=== PATIENT | female | born 1985 | race Caucasian/White ===

== ENCOUNTER 2016-07-16 21:52 | Emergency (ER) | payer OTHER ==
[~2016-07-16] VITALS: Ht 152.4 cm; Wt 75.4 kg
[~2016-07-16 21:52] MED LIST: ALBUAER2 INH; ONDA4TAB10 SL; PRENTAB26 PO; ZNT/150 PO
[2016-07-16 22:03] VITALS: TEMP 37.1; Ht 152.4 cm; Wt 75.4 kg
[2016-07-16] MEDS ORDERED: CLINDAMYCIN 150MG HOME PACK PO ONE (23:15)
[2016-07-16] MEDS ORDERED: CLC/300 PO (23:21)
--- NOTE | 2016-07-16 23:22 | EMERGENCY ROOM VISIT NOTE ---
History First contact with patient: 22:10 Chief Complaint: OTHER COMPLAINT Stated Complaint: A BUMP ON STOMACH History of Present Illness The patient is a 30 year old female who presents to the Emergency Room via private vehicle with complaints of "a bump on stomach". The patient states that she is 6 months , . She does have a history of MRSA in 2013, and his had different "break outs"of MRSA infections throughout her . These began as a painful rash on the right inner thigh and was cultured by her BASE BRANDER and found to be MRSA. This has subsided after taking antibiotic prescribed by her BASE BRANDER however she has now developed a small punctate erythematous region senior living between the mons pubis and umbilicus that is about the size of a nickel. She states this is been here for about 3 weeks and it has grown in size but has been relatively a consistent size. She states this region did feel hot, and it hurts to squeeze it but nothing has been expressed. She has tried cold compresses which relieved the pain. She denies any fevers or chills. She denies any bleeding or spotting, fevers, chills and she states the baby is active. Review of Systems A complete 6-point Review of Systems was discussed with the patient, with pertinent positives and negatives listed in the History of Present Illness. All remaining Review of Systems questions can be considered negative unless otherwise specified. Past Medical/Surgical History Medical Problems: (1) Arrest of dilitation (2) section (3) History of MRSA infection (4) Migraine Family History FHx: heart disease Hypertension Social History Smoking Status: Former Smoker Drug Use: none Marital Status: in relationship Housing Status: lives with family Occupation Status: employed Current/Historical Medications Scheduled Clindamycin HCl (Clindamycin HCl), 1 CAP PO BID Multivit/Min/Iron/Fol Ac/Pren ( Vitamin), 1 TAB PO DAILY Ranitidine Hcl (Zantac), 150 MG PO DAILY Scheduled PRN Albuterol (Ventolin), 2 PUFFS INH QID PRN for SOB/Wheezing Allergies Coded Allergies: Latex (Verified Allergy, Intermediate, HIVES, 04/30/16) Penicillins (Verified Allergy, Intermediate, HIVES, 04/30/16) Physical Exam Vital Signs Date Time Temp Pulse Resp B/P Pulse Ox O2 Delivery O2 Flow Rate FiO2 07/16/16 23:44 79 18 109/68 99 07/16/16 22:03 37.1 82 18 122/69 98 Room Air Physical Exam VITAL SIGNS - Vital signs and nursing notes were reviewed. Patient is afebrile , she is normotensive, she is not tachycardic and is saturating well on room air 98%. GENERAL -30-year-old female appearing her stated age who is in no acute distress. Communicates well with provider and answers questions appropriately. SKIN - there is a small punctate erythematous region that is circular in nature measuring 1.5 cm that is senior living between the umbilicus and wants pubis region. This appears to be in the waistline region and is constantly irritated by her pants. The region is indurated and is slightly hardened to touch but no fluctuant masses appreciated. Exam is consistent with that of cellulitis. HEAD - NC/AT. CARDIAC - RRR with S1/S2. No murmur, rubs, or gallops appreciated. Medical Decision & Procedures Medications Administered Medications (Trade) Dose Ordered Sig/Miguel Angel Route Start Time Stop Time Status Last Admin Dose Admin Clindamycin HCl (Cleocin 150MG Home Pack) 1 homepack UD ONCE PO 07/16/16 23:15 07/16/16 23:16 DC 07/16/16 23:27 1 HOMEPACK Medical Decision Patient was seen and evaluated as above. After obtaining a thorough history and physical examination, the exam was consistent with that of a cellulitis however I was concerned because she was and wanted to choose a safe antibiotic. I did discuss the case with my attending and then the pharmacist from the hospital pharmacy regarding an appropriate antibiotic for cellulitis in a female who has a history of MRSA. It was decided to give her penicillin allergy to clindamycin, being category B would be a good antibiotic with the benefits outweighed the risks. It was decided to place her on 300 mg twice daily for 5 days. She was given a home pack here with the remaining 4 days sent to her pharmacy. I do not appreciate any fluctuant or abscess-like region. She is afebrile therefore believe that sepsis is unlikely. She was instructed to return in the next 2-3 days for recheck of the wound or with her family doctor or BASE BRANDER. She was educated upon worrisome symptoms in which to return. She had questions answered prior to discharge and was discharged home in good condition. The home pack given to the patient was 150 mg tablets and she was instructed that she would need to take 2 of these to equal 300 mg. This was to be reinforced by the nurse as well. Patient seemed to understand. In evaluation treatment this patient the following differential diagnoses were entertained: Cellulitis, abscess, phlegmon, among others. Impression Primary Impression: Cellulitis Departure Information Dispostion Home / Self-Care Condition GOOD Prescriptions Clindamycin HCl (Clindamycin HCl) 300 Mg Cap 1 CAP PO BID for 4 Days, #8 CAP Prov: Lonnie Arroyo PA-C 07/16/16 Referrals Franklin Bowers D.O.Int.Med. (PCP) Patient Instructions My [facility] Additional Instructions You were seen in the emergency department for cellulitis of your abdomen. I spoke with the pharmacist and the decision was made to place her on clindamycin. This is one tablet (300mg) every 12 hours which is twice daily for a total of 5 days. You were given the first 24 hour supply here in 150mg tablets. The other 4 days was sent to your pharmacy as 300 mg tablets. Please have this wound rechecked in the next 2-3 days either by returning here or with your family doctor. Please return with any fevers, chills or any new/concerning symptoms. Problem Qualifiers Primary Impression: Cellulitis Site of cellulitis: trunk Site of cellulitis of trunk: abdominal wall Qualified Codes: L03.311 - Cellulitis of abdominal wall
[2016-07-16 23:44] VITALS: BP 109/68; PULSE 79; O2SAT 99
== END 2016-07-16 23:44 | disposition home or self-care (01) ==
LOC: C.EDB 21:54 → EEVIPCON 21:54 → C.EDD 23:44
DX: O26.92 Pregnancy related conditions, unspecified, second trimester (principal); L03.311 Cellulitis of abdominal wall; Z86.14 Personal history of Methicillin resistant Staphylococcus aureus infection; Z87.891 Personal history of nicotine dependence; Z88.0 Allergy status to penicillin; Z91.040 Latex allergy status; Z82.49 Family history of ischemic heart disease and other diseases of the circulatory system

== ENCOUNTER 2016-07-25 11:50 | Emergency (ER) | payer OTHER ==
[~2016-07-25] VITALS: Ht 152.4 cm; Wt 73.0 kg
[~2016-07-25 11:50] MED LIST changes: -ONDA4TAB10 SL
[2016-07-25 11:51] VITALS: TEMP 37.3; Ht 152.4 cm; Wt 73.0 kg
[2016-07-25 12:21] LABS: BASO % 0.5 %; BASO ABS # 0.04 K/uL (0-0.2); COMPLETE YES; HEMATOCRIT 38.5 % (37-47); IG% 0.8 %; LYMPH % 12.3 %; LYMPH ABS # 0.96 K/uL (1.2-3.4); MEAN CELL VOLUME 84.2 fL (80-100); MEAN CORPUSCULAR HEMOGLOBIN 29.3 pg (25-34); MEAN CORPUSCULAR HGB CONC 34.8 g/dl (32-36); MONO % 10.3 %; NEUT % 76.1 %; PLATELET COUNT 289 K/uL (130-400); RED BLOOD COUNT 4.57 M/uL (4.2-5.4); WHITE BLOOD COUNT 7.83 K/uL (4.8-10.8)
[2016-07-25 12:28] LABS: ALT/SGPT 17 U/L (12-78); BLOOD UREA NITROGEN 3 mg/dl (7-18); BUN/CREATININE RATIO 3.8 (10-20); CALCIUM 9.1 mg/dl (8.5-10.1); CARBON DIOXIDE 23 mmol/L (21-32); CHLORIDE 99 mmol/L (98-107); CREATININE 0.68 mg/dl (0.60-1.20); GLUCOSE 85 mg/dl (70-99); POTASSIUM 3.2 mmol/L (3.5-5.1); SODIUM 134 mmol/L (136-145)
[2016-07-25 12:31] LABS: ALKALINE PHOSPHATASE 107 U/L (45-117); AST/SGOT 16 U/L (15-37)
[2016-07-25] MEDS ORDERED: DiphenhydrAMINE HCL 50 MG/ML VIAL IV STA (12:31)
[2016-07-25] MEDS ORDERED: SODIUM CHLORIDE 0.9% 1000ML 1,000 ML IV STA ×2 (12:31→14:19)
--- NOTE | 2016-07-25 12:41 | EMERGENCY ROOM VISIT NOTE ---
History Report prepared by Tonio: Soila Soni Under the Supervision of: Dr. Ilir Sofia M.D. First contact with patient: 12:01 Chief Complaint: VOMITING Stated Complaint: V, WEAKNESS - 7 MTHS History of Present Illness The patient is a 30 year old female who presents to the Emergency Room with complaints of persistent nausea and vomiting that began yesterday. She currently rates her discomfort as a 7.5/10 in severity. The patient notes that she is currently seven months . She additionally notes weakness and a fever since yesterday. The patient notes that she has had a decrease in urination, noting that her last urination was yesterday morning. She states that she has had some upper respiratory symptoms recently, and states that her daughter was diagnosed with Croup. The patient notes she was recently diagnosed with MRSA, and states that her symptoms have improved, but the area is still there. Per nursing staff, the patient has had problems with urinary retention and incontinence since her first . The patient states that she has taken Zofran without relief. She additionally notes left ear pain. Source of History: patient Onset: yesterday Position: other (globla) Symptom Intensity: 7.5/10 Quality: other (nausea and vomiting) Timing: other (persistent) Associated Symptoms: + fevers, + urinary symptoms (decreased urination), + weakness Note: Associated Symptoms: left ear pain. Review of Systems See HPI for pertinent positives & negatives. A total of 10 systems reviewed and were otherwise negative. Past Medical & Surgical Medical Problems: (1) Arrest of dilitation (2) section (3) History of MRSA infection (4) Migraine Family History FHx: heart disease Hypertension Social History Smoking Status: Former Smoker Drug Use: none Marital Status: in relationship Housing Status: lives with family Occupation Status: employed Current/Historical Medications Scheduled Albuterol Hfa (Ventolin Hfa), 2-4 PUFFS INH Q6H Cephalexin Monohydrate (Keflex), 1 CAP PO QID Multivit/Min/Iron/Fol Ac/Pren ( Vitamin), 1 TAB PO DAILY Ranitidine Hcl (Zantac), 150 MG PO DAILY Scheduled PRN Metoclopramide (Reglan), 10 MG PO Q6H PRN for Nausea Allergies Coded Allergies: Latex (Verified Allergy, Intermediate, HIVES, 04/30/16) Penicillins (Verified Allergy, Intermediate, HIVES, 04/30/16) Physical Exam Vital Signs Date Time Temp Pulse Resp B/P Pulse Ox O2 Delivery O2 Flow Rate FiO2 07/25/16 15:46 105 18 94/63 97 Room Air 07/25/16 14:36 100 18 106/83 100 Room Air 07/25/16 13:44 103 18 120/75 98 Room Air 07/25/16 11:51 37.3 105 20 103/79 96 Room Air Physical Exam GENERAL: Patient is a healthy-appearing well-nourished HEAD: Normocephalic atraumatic EYES: Ocular movements intact pupils equal and react to light OROPHARYNX mucous membranes are moist no exudates present no erythema or edema present NECK: Supple no nuchal rigidity CHEST: Good equal expansion LUNGS: Clear and equal to auscultation CARDIAC: Normal S1 and S2 ABDOMEN: MRSA spot is well healing. Gravid abdomen, Soft nontender no guarding BACK: No CVA tenderness EXTREMITIES: No pain upon palpation normal muscle strength in all groups no clubbing cyanosis or edema NEURO: Patient is following commands is answering questions appropriately. Alert and oriented x3 Cranial Nerves 2-12 grossly intact Medical Decision & Procedures ER Provider Diagnostic Interpretation: US results as stated below per my review and radiologist interpretation: BLADDER ULTRASOUND CLINICAL HISTORY: Urinary difficulties. Evaluate for bladder prolapse. COMPARISON STUDY: Normal renal ultrasound January 15, 2012. FINDINGS: Both ureteral jets were identified. The bladder is suboptimally assessed on this exam due to underdistention. Bladder prolapse is difficult to assess for by sonography. IMPRESSION: 1. No significant abnormality of the bladder by sonography. 2. Bladder prolapse is difficult to assess for by sonography. Electronically signed by: Salazar Clark M.D. 07/25/2016 1:51 PM Dictated Date/Time: 07/25/2016 1:46 PM Laboratory Results 07/25/16 12:00 Red Blood Count 4.57, Mean Corpuscular Volume 84.2, Mean Corpuscular Hemoglobin 29.3, Mean Corpuscular Hemoglobin Concent 34.8, Mean Platelet Volume 10.0, Neutrophils (%) (Auto) 76.1, Lymphocytes (%) (Auto) 12.3, Monocytes (%) (Auto) 10.3, Eosinophils (%) (Auto) 0.0, Basophils (%) (Auto) 0.5, Neutrophils # (Auto ) 5.96, Lymphocytes # (Auto) 0.96, Monocytes # (Auto) 0.81, Eosinophils # (Auto ) 0.00, Basophils # (Auto) 0.04 07/25/16 12:00 Test 07/25/16 12:00 07/25/16 14:37 White Blood Count 7.83 K/uL (4.8-10.8) Red Blood Count 4.57 M/uL (4.2-5.4) Hemoglobin 13.4 g/dL (12.0-16.0) Hematocrit 38.5 % (37-47) Mean Corpuscular Volume 84.2 fL (80-100) Mean Corpuscular Hemoglobin 29.3 pg (25-34) Mean Corpuscular Hemoglobin Concent 34.8 g/dl (32-36) Platelet Count 289 K/uL (130-400) Mean Platelet Volume 10.0 fL (7.4-10.4) Neutrophils (%) (Auto) 76.1 % Lymphocytes (%) (Auto) 12.3 % Monocytes (%) (Auto) 10.3 % Eosinophils (%) (Auto) 0.0 % Basophils (%) (Auto) 0.5 % Neutrophils # (Auto) 5.96 K/uL (1.4-6.5) Lymphocytes # (Auto) 0.96 K/uL (1.2-3.4) Monocytes # (Auto) 0.81 K/uL (0.11-0.59) Eosinophils # (Auto) 0.00 K/uL (0-0.5) Basophils # (Auto) 0.04 K/uL (0-0.2) RDW Standard Deviation 40.9 fL (36.4-46.3) RDW Coefficient of Variation 13.4 % (11.5-14.5) Immature Granulocyte % (Auto) 0.8 % Immature Granulocyte # (Auto) 0.06 K/uL (0.00-0.02) Anion Gap 12.0 mmol/L (3-11) Est Creatinine Clear Calc Drug Dose 108.9 ml/min Estimated GFR () 137.0 Estimated GFR (Non- 118.2 BUN/Creatinine Ratio 3.8 (10-20) Calcium Level 9.1 mg/dl (8.5-10.1) Total Bilirubin 0.4 mg/dl (0.2-1) Direct Bilirubin < 0.1 mg/dl (0-0.2) Aspartate Amino Transf (AST/SGOT) 16 U/L (15-37) Alanine Aminotransferase (ALT/SGPT) 17 U/L (12-78) Alkaline Phosphatase 107 U/L (45-117) Total Protein 8.3 gm/dl (6.4-8.2) Albumin 3.6 gm/dl (3.4-5.0) Lipase 171 U/L (73-393) Human Chorionic Gonadotropin, Quant 04577 mIU/mL Urine Color YELLOW Urine Appearance CLEAR (CLEAR) Urine pH 6.0 (4.5-7.5) Urine Specific [place] 1.001 (1.000-1.030) Urine Protein NEG (NEG) Urine Glucose (UA) NEG (NEG) Urine Ketones 2+ (NEG) Urine Occult Blood NEG (NEG) Urine Nitrite NEG (NEG) Urine Bilirubin NEG (NEG) Urine Urobilinogen NEG (NEG) Urine Leukocyte Esterase NEG (NEG) Labs reviewed by ED physician. Medications Administered Medications (Trade) Dose Ordered Sig/Miguel Angel Route Start Time Stop Time Status Last Admin Dose Admin Sodium Chloride (Nss 1000ml) 1,000 ml @ 999 mls/hr Q1H1M STAT IV 07/25/16 12:31 07/25/16 13:31 DC 07/25/16 12:59 999 MLS/HR Diphenhydramine HCl (Benadryl Inj) 50 mg NOW STAT IV 07/25/16 12:31 07/25/16 12:33 DC 07/25/16 12:57 50 MG Ceftriaxone Sodium (Rocephin Inj) 1 gm NOW STAT IV 07/25/16 12:44 07/25/16 12:45 DC 07/25/16 12:57 1 GM Potassium Chloride (Manuela Ciel Elix) 40 meq NOW STAT PO 07/25/16 13:04 07/25/16 13:05 DC 07/25/16 13:09 40 MEQ Albuterol Sulfate (Ventolin 0.5% 2.5MG/0.5ML Neb) 2.5 mg NOW STAT INH 07/25/16 13:36 07/25/16 13:37 DC 07/25/16 13:43 2.5 MG Albuterol (Ventolin Hfa Inhaler) 2 puffs NOW ONCE INH 07/25/16 13:45 07/25/16 13:46 DC 07/25/16 13:43 2 PUFFS Potassium Chloride (Manuela Ciel Elix) 40 meq NOW STAT PO 07/25/16 14:01 07/25/16 14:02 DC 07/25/16 14:27 40 MEQ Metoclopramide HCl 10 mg 10 mg NOW STAT IV 07/25/16 14:03 07/25/16 14:04 DC 07/25/16 14:26 10 MG Sodium Chloride (Nss 1000ml) 1,000 ml @ 999 mls/hr Q1H1M STAT IV 07/25/16 14:19 07/25/16 15:19 DC 07/25/16 14:35 999 MLS/HR ED Course 1202: Past medical records reviewed. The patient was evaluated in room B11B. A complete history and physical examination was performed by the medical student. 1231: Ordered Benadryl Inj 50 mg IV, Sodium Chloride 1000 ml @ 999 mls/hr IV. 1236: Past medical records reviewed. The patient was evaluated in room B11B. A complete history and physical examination was performed. 1244: Ordered Rocephin Inj 1 gm IV. 1304: Ordered Potassium Chloride 40 meq PO. 1336: Ordered Albuterol Sulfate 2.5 mg INH. 1345: Ordered Albuterol 2 puffs INH. 1401: Ordered Potassium Chloride 40 meq PO. 1403: Ordered Reglan Inj 10 mg IV. 1419: Ordered Sodium Chloride 1000 ml @ 999 mls/hr IV. 1518: I reevaluated the patient and she is resting comfortably. I discussed the exam findings with her and I discussed the treatment plan. She verbalized complete understanding and agreement. She is ready to go home. Medical Decision Differential diagnosis: Etiologies such as appendicitis, diverticulitis, PUD, biliary pathology, UTI, pancreatitis, obstruction, mesenteric ischemia, aortic pathology, infections, inflammatory bowel disease, renal colic, as well as others were entertained. This is a 30-year-old female who presents emergency department complaining of vomiting. The patient has had similar issues previously and she was . She denies any pelvic pain or vaginal bleeding. She has a soft and benign abdominal examination. Serial abdominal examinations were performed of the patient's emergency department and at no tender the patient exhibited abdominal tenderness. The patient was sent for a scan of her bladder as it was thought that the patient may have a prolapsed bladder due to urinary retention however the there is no evidence of this on ultrasound and in addition the patient was able to urinate. She has no tract infection however she is complaining of what appears to be an ear infection. For this reason the patient was given Rocephin in the emergency department and will be placed on Keflex. Repeat examination revealed improvement patient's symptoms. The patient was able to tolerate by mouth potassium after receiving Reglan. I'll continue Reglan as an outpatient. Patient was in agreement with the treatment plan. Impression Primary Impression: Vomiting Additional Impression: Otitis media Scribe Attestation The scribe's documentation has been prepared under my direction and personally reviewed by me in its entirety. I confirm that the note above accurately reflects all work, treatment, procedures, and medical decision making performed by me. Departure Information Dispostion Home / Self-Care Prescriptions Cephalexin Monohydrate (Keflex) 500 Mg Cap 1 CAP PO QID for 10 Days, #40 CAP Prov: Ilir Sofia MD 07/25/16 Metoclopramide (Reglan) 10 Mg Tab 10 MG PO Q6H Y for Nausea, #10 TAB Prov: lIir Sofia MD 07/25/16 Referrals Ed Black M.D. (PCP) Forms HOME CARE DOCUMENTATION FORM, IMPORTANT VISIT INFORMATION, School Instructions, Work Instructions Patient Instructions My [facility], Nausea Vomit Control Additional Instructions Follow up with DR Black's office You have been examined and treated today on an emergency basis only. This is not a substitute for, or an effort to provide, complete comprehensive medical care. It is impossible to recognize and treat all injuries or illnesses in a single emergency department visit. It is therefore important that you follow up closely with your PCP. Call as soon as possible for an appointment. Thank you for your time and consideration. I look forward to speaking with you again soon. Please don't hesitate to call us if you have any questions. Problem Qualifiers Primary Impression: Vomiting Vomiting type: unspecified Vomiting Intractability: non-intractable Nausea presence: with nausea Qualified Codes: R11.2 - Nausea with vomiting, unspecified Additional Impression: Otitis media Otitis media type: unspecified Laterality: left Chronicity: unspecified Qualified Codes: H66.92 - Otitis media, unspecified, left ear
[2016-07-25] MEDS ORDERED: CEFTRIAXONE SOD INJ 1 GM ADDVIAL IV STA (12:44)
[2016-07-25] MEDS ORDERED: POTASSIUM CHLORIDE 20 MEQ/15 ML UDC PO STA ×2 (13:04→14:01)
[2016-07-25] MEDS ORDERED: ALBUTEROL 0.5% NEB SOLN 2.5 MG/0.5 ML VIAL INH STA (13:36)
[2016-07-25] MEDS ORDERED: ALBUTEROL HFA 8 GM INHALER INH ONE (13:45)
[2016-07-25] MEDS ORDERED: VNTHFA/IN INH (13:51)
--- NOTE | 2016-07-25 13:53 | DIAGNOSTIC IMAGING REPORT ---
BLADDER ULTRASOUND CLINICAL HISTORY: Urinary difficulties. Evaluate for bladder prolapse. COMPARISON STUDY: Normal renal ultrasound January 15, 2012. FINDINGS: Both ureteral jets were identified. The bladder is suboptimally assessed on this exam due to underdistention. Bladder prolapse is difficult to assess for by sonography. IMPRESSION: 1. No significant abnormality of the bladder by sonography. 2. Bladder prolapse is difficult to assess for by sonography. Electronically signed by: Salazar Clark M.D. 07/25/2016 1:51 PM Dictated Date/Time: 07/25/2016 1:46 PM
[2016-07-25] MEDS ORDERED: METOCLOPRAMIDE HCL INJ 5 MG/ML 2 ML VIAL IV STA (14:03)
[2016-07-25 14:53] LABS: URINE APPEARANCE CLEAR (CLEAR); URINE BILIRUBIN NEG (NEG); URINE COLOR YELLOW; URINE NITRITE NEG (NEG); URINE SPECIFIC GRAVITY 1.001 (1.000-1.030); UROBILINOGEN NEG (NEG)
[2016-07-25 15:01] LABS: MANUAL MICROSCOPIC REQUIRED? NO; REVIEW REQ? NO
[2016-07-25] MEDS ORDERED: METO-157 PO (15:25)
[2016-07-25] MEDS ORDERED: CEPH500C PO (15:25)
[2016-07-25 15:46] VITALS: BP 94/63; PULSE 105; O2SAT 97
== END 2016-07-25 15:49 | disposition home or self-care (01) ==
LOC: C.EDB 11:51
DX: O21.8 Other vomiting complicating pregnancy (principal); H66.92 Otitis media, unspecified, left ear; Z86.14 Personal history of Methicillin resistant Staphylococcus aureus infection; Z82.49 Family history of ischemic heart disease and other diseases of the circulatory system; Z87.891 Personal history of nicotine dependence

== ENCOUNTER → 2016-08-30 | Outpatient (CLI) | payer OTHER ==
[~2016-08-30] MED LIST changes: -ALBUAER2 INH; +CLR10 PO; +METO-157 PO; +VNTHFA/IN INH
[2016-08-30 12:12] LABS: BASO % 0.4 %; BASO ABS # 0.06 K/uL (0-0.2); COMPLETE YES; EOS % 2.4 %; HEMATOCRIT 37.2 % (37-47); IG% 4.8 %; LYMPH % 23.7 %; LYMPH ABS # 3.21 K/uL (1.2-3.4); MEAN CORPUSCULAR HEMOGLOBIN 28.6 pg (25-34); MEAN CORPUSCULAR HGB CONC 34.4 g/dl (32-36); MEAN PLATELET VOLUME 9.6 fL (7.4-10.4); MONO % 7.1 %; NEUT % 61.6 %; PLATELET COUNT 345 K/uL (130-400); RED BLOOD COUNT 4.48 M/uL (4.2-5.4); WHITE BLOOD COUNT 13.54 K/uL (4.8-10.8)
== END | disposition home or self-care (01) ==
LOC: C.LAB 11:27
PROVIDERS: ATTEND Obstetrics & Gynecology
DX: Z34.83 Encounter for supervision of other normal pregnancy, third trimester (principal)

== ENCOUNTER → 2016-09-16 | Outpatient (CLI) | payer OTHER | END | disposition home or self-care (01) | LOC: C.LAB 17:18 | PROVIDERS: ATTEND Obstetrics & Gynecology | DX: Z34.93 Encounter for supervision of normal pregnancy, unspecified, third trimester (principal) ==

== ENCOUNTER 2016-10-07 21:15 | Outpatient (CLI) | payer OTHER ==
[~2016-10-07] VITALS: Ht 152.4 cm; Wt 75.0 kg
[~2016-10-07 21:15] MED LIST changes: -CLR10 PO
[2016-10-07 22:00] VITALS: Ht 152.4 cm; Wt 75.0 kg
--- NOTE | 2016-10-10 13:04 | EDITING REQUIRED CODING QUERY ---
DIAGNOSIS NEEDED To promote full compliance with coding requirements relating to patient care, physician participation is requested in all cases of furniture repairer uncertainty. Please assist us with the question(s) below: Coding Question: The patient received care in labor and delivery on 10/07/16 as noted within the record. Please document the diagnosis that is being addressed by the medication/treatment. Provider Response: DIAGNOSIS: decreased movement Thank you for your assistance, Neeta Rivera - Chaperone
== END 2016-10-07 22:15 | disposition home or self-care (01) ==
LOC: C.LD 21:15 → C.OPB 21:15
PROVIDERS: ATTEND Obstetrics & Gynecology
DX: O36.8130 Decreased fetal movements, third trimester, not applicable or unspecified (principal); Z3A.36 36 weeks gestation of pregnancy

== ENCOUNTER 2016-10-16 11:27 | Inpatient (IN) | payer OTHER ==
[~2016-10-16] VITALS: Ht 152.4 cm; Wt 78.6 kg
[2016-10-16] MEDS ORDERED: LACTATED RINGER'S 1000ML 1,000 ML IV PRN (12:04)
[2016-10-16] MEDS ORDERED: LACTATED RINGER'S 1000ML 1,000 ML IV SCH ×2 (12:04→20:05)
[2016-10-16] MEDS ORDERED: PENICILLIN G POTASSIUM IV 6 MU in DEXTROSE 5% 250ML 250 ML IV ONE (12:15)
[2016-10-16 12:39] LABS: HEMATOCRIT 39.5 % (37-47); MEAN CELL VOLUME 84.6 fL (80-100); MEAN CORPUSCULAR HEMOGLOBIN 29.3 pg (25-34); MEAN CORPUSCULAR HGB CONC 34.7 g/dl (32-36); MEAN PLATELET VOLUME 10.2 fL (7.4-10.4); PLATELET COUNT 326 K/uL (130-400); RED BLOOD COUNT 4.67 M/uL (4.2-5.4); WHITE BLOOD COUNT 10.37 K/uL (4.8-10.8)
[2016-10-16] MEDS ORDERED: CEFAZOLIN IV 2,000 MG in DEXTROSE 5% 50ML 50 ML IV ONE (12:45)
[2016-10-16 13:02] VITALS: Ht 152.4 cm; Wt 78.6 kg
[2016-10-16] MEDS ORDERED: CLR10 PO (13:03)
[2016-10-16] MEDS ORDERED: CEFAZOLIN IV 1,000 MG in DEXTROSE 5% 50ML 50 ML IV PRN (15:30)
--- NOTE | 2016-10-16 19:39 | HISTORY & PHYSICAL EXAMINATION ---
DATE OF ADMISSION: 10/16/2016 CHIEF COMPLAINT: Intrauterine at 37 weeks gestation, lore rupture of membranes, previous section and desire for permanent sterilization. HISTORY OF PRESENT ILLNESS: The patient is a 30-year-old 3, para 1. She has had 1 first trimester AB. She had a previous in 2012, she delivered a 6-pound girl at 38 and 1/2 weeks. She had an arrest of labor at 7 cm. She also has asthma for which she uses a Ventolin inhaler p.r.n. She was followed in our office for care and delivery. She was admitted at 10:00 a.m. the day of admission with lore rupture of the membranes. She was observed for about 9 hours, at which time she had sporadic contractions and she basically had no change in her cervix, vertex head was floating. Cervix was 1 cm posterior, uneffaced, lore rupture of membranes, presently being scheduled for a repeat low segment section and also a bilateral tubal ligation. She has been explained the nature of the procedure tubal ligation including the fact that this procedure is intended to result in permanent and irreversible sterility and that there occasionally failures and the patient gets despite having had her tubes tied. PAST MEDICAL HISTORY: She has a girl at home 4 years old. ALLERGIES: STATES SHE IS ALLERGIC TO PENICILLIN WHICH GIVES HER SHORTNESS OF BREATH. PAST SURGICAL HISTORY: Her only previous surgery was a previous . SOCIAL HISTORY: No smoking. No alcohol intake. She works at home. FAMILY HISTORY: Mom is 60 in good health. Father 60 in good health and has got 2 sibs in good health. REVIEW OF SYSTEMS: HEAD: No symptoms of frequent or severe headaches. EYES: No symptoms of blurred vision, double vision. EARS: No symptoms of frequent ear infections, difficulty hearing. NOSE: No symptoms of frequent nosebleeds, difficulty breathing through her nose. THROAT: No symptoms of frequent or severe sore throat, difficulty swallowing. RESPIRATORY SYSTEM: No history of asthma, chest pain, shortness of breath. PHYSICAL EXAMINATION: GENERAL: Well-developed, well-nourished 30-year-old white female, alert, oriented x3 and cooperative in no acute distress, appears stated age. EYES: Conjunctivae are pink. Sclerae white. No evidence of jaundice. EARS: Had normal light reflex bilaterally. NOSE: Had normal mucosa. Septum is midline. There were no polyps. THROAT: No erythema or evidence of infection. Teeth are in good state of repair. HEART: Had regular rhythm. S1 and S2 are normal. LUNGS: Clear to auscultation and percussion. ABDOMEN: Soft and nontender. There is a well-healed Pfannenstiel scar. Estimated weight 7 pounds. PELVIC: Vertex floating. Cervix posterior, uneffaced, firm. MUSCULOSKELETAL: Revealed no calf tenderness. IMPRESSIONS OF THIS CASE: Desire for permanent sterilization, rupture of membranes at 37 weeks gestation, previous section for cephalopelvic disproportion. MTDD
[2016-10-16] MEDS ORDERED: FENTANYL CITRATE INJ 50 MCG/1 ML 2 ML VIAL ONE (19:54)
[2016-10-16] MEDS ORDERED: MoRPHine SULFATE PF 1 MG/ML 10 ML AMP/VIAL ONE (19:55)
[2016-10-16] MEDS ORDERED: OXYTOCIN INJ 10 UNITS/ML VIAL ONE (19:55)
[2016-10-16] MEDS ORDERED: CITRIC ACID/SODIUM CITRATE 15 ML UDC PO STA (20:19)
[2016-10-16] MEDS ORDERED: CEFAZOLIN IV 2,000 MG in DEXTROSE 5% 50ML 50 ML IV STA (20:20)
[2016-10-16] MEDS ORDERED: PHENYLEPHRINE 100MCG/ML 5ML SYR ONE (21:01)
[2016-10-16] MEDS ORDERED: ONDANSETRON INJ 2 MG/ML 2 ML VIAL ONE (21:01)
[2016-10-16] MEDS ORDERED: SODIUM CHLORIDE 0.9% 1000ML 1,000 ML IV PRN (21:26)
[2016-10-16] MEDS ORDERED: NALOXONE HCL INJ 0.08 MG in SYRINGE 1.8 ML IV PRN (21:26)
[2016-10-16] MEDS ORDERED: LACTATED RINGER'S 1000ML 500 ML IV PRN (21:26)
[2016-10-16] MEDS ORDERED: NALOXONE HCL INJ 1 MG in SODIUM CHLORIDE 0.9% 1000ML 1,000 ML IV PRN (21:26)
[2016-10-16] MEDS ORDERED: MoRPHine SULFATE PF 1 MG/ML 10 ML AMP/VIAL EPI PRN (21:30)
[2016-10-16] MEDS ORDERED: ONDANSETRON INJ 2 MG/ML 2 ML VIAL IV PRN (21:30)
[2016-10-16] MEDS ORDERED: EpHEDrine SULFATE INJ 50 MG/ML AMP IV PRN (21:30)
[2016-10-16] MEDS ORDERED: MoRPHine SULFATE 2 MG/ML CARP IV PRN (21:30)
[2016-10-16] MEDS ORDERED: DiphenhydrAMINE HCL 50 MG/ML VIAL IV PRN (21:30)
[2016-10-16] MEDS ORDERED: NALBUPHINE HCL INJ 10 MG/ML AMP IV PRN (21:30)
[2016-10-16] MEDS ORDERED: NO NARCOTICS OR SEDATIVES SCH (21:30)
[2016-10-16] MEDS ORDERED: NALOXONE HCL 0.4 MG/1 ML VIAL/CARP IV PRN (21:30)
[2016-10-16] MEDS ORDERED: DIPHTHERIA/TETANUS/PERTUSSIS 0.5 ML SYR/VIAL IM. ONE (22:00)
[2016-10-16] MEDS ORDERED: BENZOCAINE 20% AER SPR 82.5 GM CAN EXT PRN (22:00)
[2016-10-16] MEDS ORDERED: HYDROCORTISONE ACETATE 25 MG SUPP PR PRN (22:00)
[2016-10-16] MEDS ORDERED: MAGNESIUM HYDROXIDE SUSP 30 ML UDC PO PRN (22:00)
[2016-10-16] MEDS ORDERED: SUPERCREAM 0.870 % 15GM JAR EXT PRN (22:00)
[2016-10-16] MEDS ORDERED: SENNA 8.6 MG TAB PO PRN (22:00)
[2016-10-16] MEDS ORDERED: LANOLIN OINT EXT PRN ×2 (22:00)
--- NOTE | 2016-10-16 22:54 | Anesthesiology Progress Note ---
Anesthesia Post Op Note Date & Time Oct 16, 2016 at 22:53 Notes Mental Status: alert / awake / arousable, participated in evaluation Pt Amnestic to Procedure: Yes Nausea / Vomiting: adequately controlled Pain: adequately controlled Airway Patency, RR, SpO2: stable & adequate BP & HR: stable & adequate Hydration State: stable & adequate Neuraxial Anesthesia: was administered, sensory block is resolving Anesthetic Complications: no major complications apparent
[2016-10-16] MEDS: KETOROLAC TROMETHAMINE 30 MG/ML VIAL IV. PRN (23:13)
[2016-10-16] MEDS: OXYTOCIN INJ 20 UNITS in LACTATED RINGER'S 1000ML 1,000 ML IV SCH (23:16)
--- NOTE | 2016-10-16 23:16 | OPERATIVE REPORT ---
DATE OF OPERATION: 10/16/2016 PROCEDURE: Repeat low segment section and bilateral tubal ligation. INDICATIONS FOR SURGERY: Previous section, lore rupture of membranes. PREOPERATIVE DIAGNOSES: Previous sections secondary to cephalopelvic disproportion, lore rupture of membranes, desire for permanent sterilization. POSTOPERATIVE DIAGNOSES: Same, omental adhesions to the undersurface of the incision. SURGEON: Dr. Black. SINGLE FOLD MACHINE OPERATOR: Dr. Contreras. ESTIMATED BLOOD LOSS: 600 mL ANESTHESIA: Spinal. OPERATIVE FINDINGS AND PROCEDURE: The patient was brought to the OR table, correctly identified by armband and conversation. Compression stockings were applied. Gill catheter was inserted aseptically in the bladder, connected to gravity drainage. Spinal anesthesia was administered. Lower abdomen and upper thigh were painted with an alcohol based sterilizing solution and draped in usual sterile fashion. Level of the anesthesia was tested and found to be adequate. An incision was made on the previous scar. Incision was carried down to the anterior fascia by sharp dissection. Hemostasis was secured by electrocauterization. Fascia was incised transversely, from the underlying muscle by blunt and sharp dissection. Recti muscles were in the midline, exposing the peritoneum which was carefully raised and entered. An incision was made above the vesicouterine fold. Bladder was undermined bluntly and pushed out of the operative field. Lower uterine segment was scored first with a knife and then entered bluntly with the scissors. Clear amnionic fluid was seen at this time. The incision was then widened laterally by spreading it with 2 fingers. Vectis retractor was applied to the head, and with fundal pressure, 's head was delivered. There was a nuchal cord x1 which was reduced over the neck. The body was delivered without difficulty. Cord was clamped and cut, and the was attended to by the kitchen bath designer, Dr. Lopez who was present and scrubbed at the time of the delivery. Following this, cord blood was taken. Placenta was removed manually. Uterus, tubes and ovaries were brought out through the incision. After wiping the uterine cavity clean with a clean sponge, 10 units of Pitocin was injected into the myometrium. The myometrial layer was approximated with a continuous interlocking suture of heavy chromic. The fascial layer was approximated over this with a continuous suture of 0 Vicryl and then the peritoneal edges were restored with a 3-0 chromic. Bilateral tubal ligation was performed by isolating mid portion of each fallopian tube, tying it proximally and distally about a third to a half of an inch, then injecting the broad ligament with local with epinephrine, dissecting out the 2 leaves of the broad ligament, cutting the portion of the tube out, then burying the proximal stump of the tube in the leaves of the broad ligament and exteriorizing the distal stump. This was done for both the right and left fallopian tube. Then, the pelvis was cleansed off all blood clots and debris. Packs were removed. Uterus, tubes and ovaries were reinserted into the abdominal cavity. There was omentum adhesed to the undersurface of the incision on the patient's left side and this was dissected off with an electric knife. Then, careful anatomical approximation of the anterior abdominal wall was performed. The peritoneum was closed with a mattress suture of chromic catgut. Recti muscles were approximated with interrupted [id number] suture of chromic catgut. The fascia was closed with continuous interlocking suture of Vicryl on each side, tied in the midline. Subcu was approximated with continuous plain. The skin edges were approximated with staple clips. I attest to the content of the Intraoperative Record and any orders documented therein. Any exceptio ns are noted below.
[2016-10-17] VITALS (16 sets, daily range): BP systolic 101–136; BP diastolic 65–83; PULSE 64–90; TEMP 36.5–37.2; O2SAT 18–100
[2016-10-17] MEDS: MEPERIDINE HCL 25 MG/ML CARP IV PRN ×3 (03:33→14:23)
[2016-10-17] MEDS: KETOROLAC TROMETHAMINE 30 MG/ML VIAL IV. PRN ×2 (05:17→10:34)
[2016-10-17] MEDS ORDERED: LACTATED RINGER'S 1000ML 500 ML IV STA (06:41)
[2016-10-17] MEDS ORDERED: NURSING VERBAL MED ORDER ONE (06:45)
[2016-10-17] MEDS: PRENATAL VITAMIN TAB PO SCH (08:34)
[2016-10-17] MEDS: DOCUSATE SODIUM 100 MG CAP PO SCH ×2 (08:34→20:33)
[2016-10-17] MEDS: FERROUS SULFATE 325 MG TAB PO SCH (08:35)
[2016-10-17] MEDS: SIMETHICONE 80 MG CHEW PO SCH ×4 (08:35→20:34)
[2016-10-17] MEDS: OXYTOCIN INJ 20 UNITS in LACTATED RINGER'S 1000ML 1,000 ML IV SCH (08:36)
--- NOTE | 2016-10-17 12:53 | Progress Note ---
Subjective Oct 17, 2016. Subjective conversation w/ patient Ambulation: ambulating normally Voiding: no voiding problems Passing Gas: No Diet Tolerance: Clear Liquids Lochia: Small Feeding Type: Breast Feeding Review of Systems Constitutional: + fever Objective Vital Signs Date Time Temp Pulse Resp B/P Pulse Ox O2 Delivery O2 Flow Rate FiO2 10/17/16 12:15 37.1 67 20 118/71 100 Room Air 10/17/16 12:15 20 100 10/17/16 11:15 20 99 10/17/16 10:15 18 100 10/17/16 09:15 18 98 10/17/16 08:15 37.0 90 18 118/71 99 Room Air 10/17/16 08:15 99 Room Air 10/17/16 08:15 18 99 10/17/16 07:15 18 99 10/17/16 06:00 20 98 10/17/16 05:15 36.7 64 20 114/70 100 Room Air 10/17/16 05:15 20 100 10/17/16 04:00 20 97 10/17/16 03:00 18 99 10/17/16 02:00 18 98 10/17/16 00:40 36.8 72 20 123/66 99 Room Air 10/17/16 00:40 99 Room Air 10/17/16 00:40 20 99 Physical Exam General Appearance: WELL-APPEARING Respiratory/Chest: lungs clear Abdomen: non tender Fundus: Firm, Non-Tender Incision Description: Clean, Dry & Intact Extremities: no pedal edema, no calf tenderness Assessment and Plan Problem List Medical Problems: (1) Abnormal uterine bleeding Status: Acute (2) Cellulitis Status: Acute (3) Dehydration Status: Acute (4) Epigastric abdominal pain Status: Acute (5) Febrile illness Status: Acute (6) Nausea vomiting and diarrhea Status: Acute (7) Nausea/vomiting in Status: Acute (8) Pelvic pain Status: Acute (9) Subchorionic hematoma in first trimester Status: Acute (10) Vomiting Status: Acute Post-Op Day#: 1
[2016-10-17] MEDS ORDERED: DiphenhydrAMINE HCL 50 MG/ML VIAL IV PRN (14:30)
[2016-10-17] MEDS ORDERED: ONDANSETRON INJ 2 MG/ML 2 ML VIAL IV PRN (14:30)
[2016-10-17] MEDS ORDERED: DC INTRASPINAL MORPHINE SCH (14:30)
[2016-10-17] MEDS ORDERED: KETOROLAC TROMETHAMINE 30 MG/ML VIAL IV. PRN (14:30)
[2016-10-17] MEDS ORDERED: ZOLPIDEM TARTRATE 5 MG TAB PO PRN (14:30)
[2016-10-17] MEDS ORDERED: MEPERIDINE HCL 50 MG/ML CARP IV PRN (14:30)
[2016-10-17] MEDS ORDERED: MEPERIDINE HCL 75 MG/ML CARP IV PRN (14:30)
[2016-10-17] MEDS: IBUPROFEN 600 MG TAB PO PRN ×2 (17:33→22:52)
[2016-10-17] MEDS: OXYCODONE/ACETAMINOPHEN 5-325 TAB PO PRN ×2 (17:34→20:32)
[2016-10-17] MEDS: RANITIDINE HCL 150 MG TAB PO SCH (20:34)
[2016-10-17] MEDS ORDERED: BISACODYL 5 MG TABEC PO ONE (22:00)
[2016-10-18] MEDS: OXYCODONE/ACETAMINOPHEN 5-325 TAB PO PRN ×2 (00:49→05:25)
[2016-10-18 08:00] VITALS: BP 117/68; PULSE 83; TEMP 36.9
[2016-10-18] MEDS: FERROUS SULFATE 325 MG TAB PO SCH (08:13)
[2016-10-18] MEDS: PRENATAL VITAMIN TAB PO SCH (08:13)
[2016-10-18] MEDS: SIMETHICONE 80 MG CHEW PO SCH ×4 (08:13→20:55)
[2016-10-18] MEDS: RANITIDINE HCL 150 MG TAB PO SCH ×2 (08:13→20:55)
[2016-10-18] MEDS: IBUPROFEN 600 MG TAB PO PRN (08:14)
[2016-10-18] MEDS: DOCUSATE SODIUM 100 MG CAP PO SCH ×2 (08:14→20:55)
--- NOTE | 2016-10-18 09:07 | Progress Note ---
Subjective Oct 18, 2016. Subjective conversation w/ patient Ambulation: ambulating normally Voiding: no voiding problems Passing Gas: Yes Diet Tolerance: Regular Diet Lochia: Small Feeding Type: Breast Feeding Review of Systems Constitutional: + fever Objective Vital Signs Date Time Temp Pulse Resp B/P Pulse Ox O2 Delivery O2 Flow Rate FiO2 10/18/16 08:00 36.9 83 20 117/68 Room Air 10/17/16 23:25 Room Air 10/17/16 23:25 36.5 70 16 101/65 97 Room Air 10/17/16 19:50 37.1 78 16 119/68 99 Room Air 10/17/16 19:50 Room Air 10/17/16 17:00 100 Room Air 10/17/16 17:00 37.2 82 18 136/83 100 Room Air 10/17/16 13:15 18 98 10/17/16 12:15 37.1 67 20 118/71 100 Room Air 10/17/16 12:15 20 100 10/17/16 11:15 20 99 10/17/16 10:15 18 100 10/17/16 09:15 18 98 Physical Exam General Appearance: WELL-APPEARING Abdomen: normal bowel sounds, non tender Fundus: Firm, Non-Tender Incision Description: Clean, Dry & Intact Extremities: no pedal edema, no calf tenderness Assessment and Plan Problem List Medical Problems: (1) Abnormal uterine bleeding Status: Acute (2) Cellulitis Status: Acute (3) Dehydration Status: Acute (4) Epigastric abdominal pain Status: Acute (5) Febrile illness Status: Acute (6) Nausea vomiting and diarrhea Status: Acute (7) Nausea/vomiting in Status: Acute (8) Pelvic pain Status: Acute (9) Subchorionic hematoma in first trimester Status: Acute (10) Vomiting Status: Acute Post-Op Day#: 2
[2016-10-18] MEDS: HYDROCODONE/ACETAMI 10/325 TAB PO PRN ×3 (10:08→22:06)
[2016-10-18 17:19] VITALS: BP 117/78; PULSE 98; TEMP 36.9; O2SAT 99
[2016-10-18] MEDS ORDERED: BISACODYL 10 MG SUPP PR PRN (22:00)
[2016-10-19] MEDS: IBUPROFEN 600 MG TAB PO PRN ×3 (01:32→12:39)
[2016-10-19 01:45] VITALS: BP 113/70; PULSE 87; TEMP 36.7
[2016-10-19] MEDS: HYDROCODONE/ACETAMI 10/325 TAB PO PRN ×2 (03:39→10:24)
[2016-10-19] MEDS: DOCUSATE SODIUM 100 MG CAP PO SCH (07:38)
[2016-10-19] MEDS: SIMETHICONE 80 MG CHEW PO SCH ×2 (07:38→12:38)
[2016-10-19] MEDS: FERROUS SULFATE 325 MG TAB PO SCH (07:38)
[2016-10-19] MEDS: PRENATAL VITAMIN TAB PO SCH (07:38)
[2016-10-19] MEDS: RANITIDINE HCL 150 MG TAB PO SCH (07:38)
[2016-10-19 07:45] VITALS: BP 136/79; PULSE 88; TEMP 36.9
--- NOTE | 2016-10-19 10:01 | Progress Note ---
Subjective Oct 19, 2016. Subjective conversation w/ patient Ambulation: ambulating normally Voiding: no voiding problems Passing Gas: Yes Diet Tolerance: Regular Diet Lochia: Small Feeding Type: Breast Feeding Review of Systems Constitutional: + fever Objective Vital Signs Date Time Temp Pulse Resp B/P Pulse Ox O2 Delivery O2 Flow Rate FiO2 10/19/16 01:45 Room Air 10/19/16 01:45 36.7 87 16 113/70 Room Air 10/18/16 17:19 36.9 98 18 117/78 99 Room Air 10/18/16 16:30 Room Air Physical Exam General Appearance: WELL-APPEARING Abdomen: non tender Fundus: Firm, Non-Tender Incision Description: Clean, Dry & Intact Extremities: no pedal edema, no calf tenderness Assessment and Plan Problem List Medical Problems: (1) Abnormal uterine bleeding Status: Acute (2) Cellulitis Status: Acute (3) Dehydration Status: Acute (4) Epigastric abdominal pain Status: Acute (5) Febrile illness Status: Acute (6) Nausea vomiting and diarrhea Status: Acute (7) Nausea/vomiting in Status: Acute (8) Pelvic pain Status: Acute (9) Subchorionic hematoma in first trimester Status: Acute (10) Vomiting Status: Acute Post-Op Day#: 3
--- NOTE | 2016-10-19 10:04 | Discharge Instructions ---
Discharge Instructions Date of Service Oct 19, 2016. Admission Reason for Admission: R/O Rupture Of Membranes Discharge Discharge Diagnosis / Problem: premature rupture of membranes IUGR Discharge Goals Goal(s): Routine recovery after Activity Recommendations Activity Limitations: as noted below ACTIVITY RECOMMENDATIONS: * Gradual return to full activity over the next 2-3 weeks. * No lifting - nothing heavier than baby over the next 2-3 weeks. * Do not engage in vigorous exercise, sexual activity or sports for 6 weeks. * Do not drive or operate any motorized equipment for 14 days. * You may shower/bathe daily. DIET: Resume Previous Diet If Breast-feeding: * Increase caloric intake by 500 calories, eat 3 well balanced meals, 2 high protein snacks a day and drink 6-8 8oz. glasses of fluid per day. BREAST CARE: If you are not breast feeding: * Wear a supportive bra 24 hours a day for one to two weeks. * Avoid stimulating your breasts and nipples as much as possible during the first few weeks after delivery. * When taking a shower, have the warm water hit your back, not breasts. * When your breasts feel full, apply ice packs. Usually three to four times a day helps ease the discomfort. * Take a mild pain medication (Tylenol / Motrin) when you are uncomfortable. If breast feeding: * Use breast milk to lubricate nipples. Lansinoh cream may be used for sore nipples. You do not need to remove cream prior to breast feeding. If using a different brand of cream, check the label for directions regarding removal of cream prior to nursing. * Wear a supportive bra. * If having problems with breasts or breast feeding, call a project consultant or your health care provider. VITAMINS: * One tablet daily. Continue taking while or until you have your check up in 6 weeks. SPECIAL CARE INSTRUCTIONS: * Vaginal rest (no tampons, douching, intercourse) until after doctor's visit. * control as discussed with doctor. * Verbalizes understanding of car seat law as reviewed with patient by nursing. * Car Seat hand-out given and reviewed with patient by nursing. * Shaken baby information reviewed with patient by nursing. Call you doctor if: * Heavy bleeding (saturating a pad an hour) or passing clots the size of your fist. Bleeding has a foul smelling odor. * A fever greater than 100.4 degrees F (38 degrees C) on two occasions four hours apart and/or chills. * Unusual pain in the pelvic or vaginal areas. Pain should improve each day . * Call the doctor for any increased redness, drainage or swelling around the incision and any pain unrelieved by prescribed pain medication. * Signs and symptoms of phlebitis(possible blood clots forming in the veins): leg pain, warm, red or swollen area on leg. * "Baby Blues" lasting longer than two weeks. If you have any questions or concerns, call your health care practitioner at [phone]. FOLLOW-UP VISIT: Follow-up visit for examination in 6 weeks. Incision check (staple removal) in 1 week. Please call office at [phone] if not already scheduled. . Instructions / Follow-Up Instructions / Follow-Up ACTIVITY RECOMMENDATIONS: * Gradual return to full activity over the next 2-3 weeks. * No lifting - nothing heavier than baby over the next 2-3 weeks. * Do not engage in vigorous exercise, sexual activity or sports for 6 weeks. * Do not drive or operate any motorized equipment for 14 days. * You may shower/bathe daily. DIET: Resume Previous Diet If Breast-feeding: * Increase caloric intake by 500 calories, eat 3 well balanced meals, 2 high protein snacks a day and drink 6-8 8oz. glasses of fluid per day. BREAST CARE: If you are not breast feeding: * Wear a supportive bra 24 hours a day for one to two weeks. * Avoid stimulating your breasts and nipples as much as possible during the first few weeks after delivery. * When taking a shower, have the warm water hit your back, not breasts. * When your breasts feel full, apply ice packs. Usually three to four times a day helps ease the discomfort. * Take a mild pain medication (Tylenol / Motrin) when you are uncomfortable. If breast feeding: * Use breast milk to lubricate nipples. Lansinoh cream may be used for sore nipples. You do not need to remove cream prior to breast feeding. If using a different brand of cream, check the label for directions regarding removal of cream prior to nursing. * Wear a supportive bra. * If having problems with breasts or breast feeding, call a project consultant or your health care provider. VITAMINS: * One tablet daily. Continue taking while or until you have your check up in 6 weeks. SPECIAL CARE INSTRUCTIONS: * Vaginal rest (no tampons, douching, intercourse) until after doctor's visit. * control as discussed with doctor. * Verbalizes understanding of car seat law as reviewed with patient by nursing. * Car Seat hand-out given and reviewed with patient by nursing. * Shaken baby information reviewed with patient by nursing. Call you doctor if: * Heavy bleeding (saturating a pad an hour) or passing clots the size of your fist. Bleeding has a foul smelling odor. * A fever greater than 100.4 degrees F (38 degrees C) on two occasions four hours apart and/or chills. * Unusual pain in the pelvic or vaginal areas. Pain should improve each day . * Call the doctor for any increased redness, drainage or swelling around the incision and any pain unrelieved by prescribed pain medication. * Signs and symptoms of phlebitis(possible blood clots forming in the veins): leg pain, warm, red or swollen area on leg. * "Baby Blues" lasting longer than two weeks. If you have any questions or concerns, call your health care practitioner at [phone]. FOLLOW-UP VISIT: Follow-up visit for examination in 6 weeks. Incision check (staple removal) in 1 week. Please call office at [phone] if not already scheduled. Current Hospital Diet Patient's current hospital diet: Regular OB Diet Discharge Diet Recommended Diet: Regular Diet Procedures Procedures Performed: REPEAT CAESAREAN SECTION WITH BILATERAL TUBAL LIGATON DEL VIABLE FEMALE AT 2106 Pending Studies Studies pending at discharge: no Medical Emergencies . Who to Call and When: Medical Emergencies: If at any time you feel your situation is an emergency, please call 911 immediately. . Non-Emergent Contact Non-Emergency issues call your: Chaplain Resident Call Non-Emergent contact if: temperature is above 100.5 . . "Provider Documentation" section prepared by Ed Black. . VTE Core Measure Inpt VTE Proph given/why not?: Treatment not indicated
--- NOTE | 2016-10-19 10:31 | DISCHARGE SUMMARY ---
Mrs. Levine was admitted with premature rupture of membranes. She previously had had a section for cephalopelvic disproportion. The patient also requested permanent sterilization. On admission, she had lore rupture of membranes confirmed. Cervix was posterior, uneffaced, long and firm. Presenting part was floating. She was observed for about 10 hours during which time she had essentially no sporadic contractions. Due the patient's small stature, previous history of section and a very unfavorable cervix, she was felt not to be a candidate for . She was given prophylactic antibiotics, taken to the OR where she underwent repeat low-segment section along with bilateral partial salpingectomy. Infant weighed 4 pounds 14 ounces, indicative of IUGR. Postoperatively, she had an ileus for about 24 hours, then her bowel sounds came back, she remained afebrile throughout her postoperative course. At the time of discharge, she was ambulating well, eating well. Incision was clean and dry. She requested discharge and she was given prescriptions for 600 mg Motrin and also Vicodin 10/325 tablets. She was told to call the office for removal of traci.
[2016-10-19 14:45] VITALS: BP_DIAS 70; PULSE 87; TEMP 36.7
--- NOTE | 2016-10-21 07:21 | EDITING REQUIRED CODING QUERY ---
Your help is needed for correct coding of this account; please clarify if the patients Post-operative Ileus was: (x ) expected out of the surgery ( ) unexpected complication from the surgery ( )other please specify Thank you for your time, ISRAEL Magallanes, DATABASE DESIGN ANALYST
== END 2016-10-19 15:40 | disposition home or self-care (01) | DRG 765 ==
LOC: C.OPB 11:27 → C.LD 11:27 → C.OPB 12:09 → C.LD 12:09 → C.OBG 10-17 00:34
PROVIDERS: ADMIT Obstetrics & Gynecology; ATTEND Obstetrics & Gynecology
PROC: 10D00Z1 Extraction of Products of Conception, Low, Open Approach (ICD-10-PCS; principal; 2016-10-16 19:55)
PROC: 0UB70ZZ Excision of Bilateral Fallopian Tubes, Open Approach (ICD-10-PCS; principal; 2016-10-16 19:55)
DX: O66.41 Failed attempted vaginal birth after previous cesarean delivery (principal); O36.5930 Maternal care for other known or suspected poor fetal growth, third trimester, not applicable or unspecified; K56.7 Ileus, unspecified; O99.63 Diseases of the digestive system complicating the puerperium; O34.219 Maternal care for unspecified type scar from previous cesarean delivery; O42.92 Full-term premature rupture of membranes, unspecified as to length of time between rupture and onset of labor; O69.81X0 Labor and delivery complicated by cord around neck, without compression, not applicable or unspecified; O99.52 Diseases of the respiratory system complicating childbirth; J45.909 Unspecified asthma, uncomplicated; O99.89 Other specified diseases and conditions complicating pregnancy, childbirth and the puerperium; N73.6 Female pelvic peritoneal adhesions (postinfective); Z30.2 Encounter for sterilization; Z3A.37 37 weeks gestation of pregnancy; Z37.0 Single live birth

== ENCOUNTER → 2016-11-28 | Outpatient (CLI) | payer OTHER ==
[~2016-11-28] MED LIST changes: +CLR10 PO
== END | disposition home or self-care (01) ==
LOC: C.PAPS 10:08
PROVIDERS: ATTEND Obstetrics & Gynecology
DX: Z39.2 Encounter for routine postpartum follow-up (principal)

== ENCOUNTER → 2017-03-18 | Outpatient (CLI) | payer OTHER ==
[~2017-03-18] MED LIST changes: -METO-157 PO
[2017-03-18 17:47] LABS: HEMATOCRIT 41.8 % (37-47)
== END | disposition home or self-care (01) ==
LOC: C.LAB 16:09
PROVIDERS: ATTEND Obstetrics & Gynecology
DX: N92.0 Excessive and frequent menstruation with regular cycle (principal)

== ENCOUNTER 2017-06-28 14:21 | Emergency (ER) | payer OTHER ==
[~2017-06-28] VITALS: Ht 152.4 cm; Wt 71.5 kg
[~2017-06-28 14:21] MED LIST changes: -ZNT/150 PO
[2017-06-28 14:23] VITALS: TEMP 37.3; Ht 152.4 cm; Wt 71.5 kg
[2017-06-28] MEDS ORDERED: FEXO1TAB49 PO (15:20)
[2017-06-28] MEDS ORDERED: ZNT/150 PO (15:45)
[2017-06-28 15:50] VITALS: BP 146/95; PULSE 104; O2SAT 96
--- NOTE | 2017-06-28 15:54 | DIAGNOSTIC IMAGING REPORT ---
L KNEE 3 VIEWS CLINICAL HISTORY: 31 years-old Female presenting with left knee pain s/p fall. TECHNIQUE: Frontal, lateral, and sunrise views of the left knee were obtained. COMPARISON: Correlation made to plain right knee performed the same day. FINDINGS: Mild medial joint space loss with medial greater than lateral compartment osteophytosis. No significant degenerative change of the patellofemoral compartment. Trace knee joint effusion. No patellar subluxation. No acute fracture or malalignment. IMPRESSION: Medial compartment degenerative change greater than lateral compartment. No acute osseous injury. Trace knee joint effusion. Electronically signed by: Kailash Orozco M.D. 06/28/2017 3:53 PM Dictated Date/Time: 06/28/2017 3:52 PM
--- NOTE | 2017-06-28 15:55 | DIAGNOSTIC IMAGING REPORT ---
R KNEE 3 VIEWS CLINICAL HISTORY: 31 years-old Female presenting with right knee pain s/p fall. TECHNIQUE: Frontal, lateral, and sunrise views the right knee were obtained. COMPARISON: Comparison made to plain radiograph of the left knee performed the same day. FINDINGS: Minimal medial joint space loss with minimal osteophytosis in the medial compartment. No acute fracture or malalignment. Trace knee joint effusion. No patellar subluxation. IMPRESSION: Minimal degenerative change in the medial compartment. No acute osseous injury. Electronically signed by: Kailahs Orozco M.D. 06/28/2017 3:54 PM Dictated Date/Time: 06/28/2017 3:53 PM
--- NOTE | 2017-06-28 16:01 | EMERGENCY ROOM VISIT NOTE ---
ED Visit Note First contact with patient: 14:53 CHIEF COMPLAINT: Bilateral knee pain HISTORY OF PRESENT ILLNESS: This 31-year-old female patient presents to the emergency department 1 day after sustaining an injury to the bilateral knees after a fall. The patient states she fell on her sidewalk, landing on both knees. Later yesterday evening, she noticed that the knees appeared swollen. She did take a few doses of 800 mg ibuprofen and an oxycodone due to the pain. She states it woke her from sleep and she was unable to stand. The patient states the right knee is more painful, and she is having difficulty bending and walking up or down steps. She states the pain is beginning to radiate down the lower leg on the right. She states the left knee appears more swollen to her. She does have full range of motion in this knee, and is able to bear weight on it. She describes the pain as pulsating/pops, and rates it 8/10. The patient denies any other injuries besides their knee. The patient denies bruising. There is pain in the medial aspect of the left knee and over the entire right knee. The patient states they are able to walk on it. No numbness or tingling. No previous injuries to this knee. No ankle, foot or hip pain. REVIEW OF SYSTEMS: A 6 system review of systems was completed with positives and pertinent negatives listed in the HPI. ALLERGIES: Penicillin, latex MEDICATIONS: Zantac PMH: Reflux SOCIAL HISTORY: The patient lives locally with family. She denies drug, alcohol , tobacco use. PHYSICAL EXAM: Vital Signs: Reviewed Nurse's notes, vital signs stable. GENERAL: This is a 31-year-old white female, no acute distress, but appears in pain, well-developed, well-nourished. MENTAL STATUS: Alert, oriented to person place and time, and cooperative. MUSCULOSKELETAL: The left knee is mildly swollen. There is no ecchymosis. There is no joint effusion present. The patient is tender on the medial aspect of the patella. There is no joint line tenderness. The patella does appropriately subluxate. Range of motion is full. Strength of the quads and hamstrings is 5/5. Rissa's is negative. Corinna's and Anterior Drawer tests are negative for laxity. There is discomfort, but no laxity with varus and valgus stressing. The right knee is not swollen. There is no ecchymosis. There is no joint effusion present. The patient is tender over the entire anterior knee. There is no joint line tenderness. The patella does appropriately subluxate. Range of motion is limited due to pain. The patient has full extension, but limited flexion. Strength of the quads and hamstrings is 5/5. Rissa's is negative. Corinna's and Anterior Drawer tests are negative for laxity. There is no laxity , but there is discomfort with varus and valgus stressing. The foot and toes are warm and well-perfused. Dorsalis pedis pulse 2+. Sensation to pain and light touch is intact. Capillary refill less than 2 seconds. RADIOLOGY: L KNEE 3 VIEWS CLINICAL HISTORY: 31 years-old Female presenting with left knee pain s/p fall. TECHNIQUE: Frontal, lateral, and sunrise views of the left knee were obtained. COMPARISON: Correlation made to plain right knee performed the same day. FINDINGS: Mild medial joint space loss with medial greater than lateral compartment osteophytosis. No significant degenerative change of the patellofemoral compartment. Trace knee joint effusion. No patellar subluxation. No acute fracture or malalignment. IMPRESSION: Medial compartment degenerative change greater than lateral compartment. No acute osseous injury. Trace knee joint effusion. Electronically signed by: Kailash Orozco M.D. 06/28/2017 3:53 PM Dictated Date/Time: 06/28/2017 3:52 PM R KNEE 3 VIEWS CLINICAL HISTORY: 31 years-old Female presenting with right knee pain s/p fall. TECHNIQUE: Frontal, lateral, and sunrise views the right knee were obtained. COMPARISON: Comparison made to plain radiograph of the left knee performed the same day. FINDINGS: Minimal medial joint space loss with minimal osteophytosis in the medial compartment. No acute fracture or malalignment. Trace knee joint effusion. No patellar subluxation. IMPRESSION: Minimal degenerative change in the medial compartment. No acute osseous injury. Electronically signed by: Kailash Orozco M.D. 06/28/2017 3:54 PM Dictated Date/Time: 06/28/2017 3:53 PM EMERGENCY DEPARTMENT COURSE: I examined the patient. X-rays of the bilateral knees were reviewed by myself and read by radiology and reveal no acute bony abnormality. The patient was placed in a knee immobilizer under my direction and the position was satisfactory. The patient was instructed on the use of crutches. The patient was discharged home in good condition. I attest that I have personally reviewed the patient's current medication list. Patient was found to have normal blood pressure on screening and does not require follow-up. DIFFERENTIAL DIAGNOSIS: Contusion, fracture, sprain, strain, dislocation, malignancy, and others DIAGNOSIS: Bilateral knee contusions Problem List Medical Problems: (1) section Status: Resolved (2) History of MRSA infection Status: Resolved (3) Migraine Status: Chronic Current/Historical Medications Scheduled Fexofenadine Hcl (Lynn Allergy), 180 MG PO DAILY Ranitidine Hcl (Zantac), 150 MG PO DAILY Scheduled PRN Albuterol Hfa (Ventolin Hfa), 2 PUFFS INH Q6H PRN for SOB/Wheezing Allergies Coded Allergies: Latex (Verified Allergy, Intermediate, HIVES, 10/07/16) Penicillins (Verified Allergy, Intermediate, HIVES, 10/07/16) Vital Signs Date Time Temp Pulse Resp B/P (MAP) Pulse Ox O2 Delivery O2 Flow Rate FiO2 06/28/17 15:50 104 18 146/95 96 06/28/17 14:23 37.3 93 18 99 Room Air Departure Information Impression Primary Impression: Contusion of knee Dispostion Home / Self-Care Condition GOOD Referrals No Doctor, Assigned (PCP) Patient Instructions ED Contusion Lower Ext, My [facility] Additional Instructions ORTHOPEDIC INSTRUCTIONS: Ibuprofen(Motrin, Advil) may be used for fever or pain. Use 600mg every six hours as needed. Take with food. Avoid using more than 2400mg in a 24 hour period. Do not use 2400mg per day for more than three consecutive days without physician direction. Prolonged inappropriate use can lead to stomach upset or ulcers. (AND/OR) Acetaminophen(Tylenol) may be used for fever or pain. Use 1000mg every six hours as needed. Avoid using more than 3000mg in a 24 hour period. *Alternate these medications at these dosages every 3-4 hours for increased pain relief. Ice compresses for 20 minutes at a time four times daily for 2-3 days. Use the crutches as needed to help with weight bearing. Rest and elevate your injury. Return to the ER immediately for any numbness, tingling, severe pain, extreme swelling in the extremity or as needed. Follow-up with your orthopedic surgeon in 7-10 days if no improvement in symptoms. Follow-up with your primary care physician in 2 to 3 days for a recheck of your current condition. Problem Qualifiers Primary Impression: Contusion of knee Encounter type: initial encounter Laterality: unspecified laterality Qualified Codes: S80.00XA - Contusion of unspecified knee, initial encounter
== END 2017-06-28 16:30 | disposition home or self-care (01) ==
LOC: C.EDB 14:23 → C.EDD 16:30
DX: S80.00XA Contusion of unspecified knee, initial encounter (principal); W19.XXXA Unspecified fall, initial encounter; Y92.480 Sidewalk as the place of occurrence of the external cause; K21.9 Gastro-esophageal reflux disease without esophagitis; G43.909 Migraine, unspecified, not intractable, without status migrainosus; Z86.14 Personal history of Methicillin resistant Staphylococcus aureus infection; Z79.899 Other long term (current) drug therapy

== ENCOUNTER 2018-01-22 13:06 | Emergency (ER) | payer SELFPAY ==
[~2018-01-22] VITALS: Ht 152.4 cm; Wt 67.0 kg
[~2018-01-22 13:06] MED LIST changes: -CLR10 PO; +FEXO1TAB49 PO; -PRENTAB26 PO; +ZNT/150 PO
[2018-01-22 13:10] VITALS: Ht 152.4 cm; Wt 67.0 kg
[2018-01-22] MEDS ORDERED: PROCHLORPERAZINE 5 MG/ML 2 ML VIAL IV STA (13:28)
[2018-01-22] MEDS ORDERED: SODIUM CHLORIDE 0.9% 1000ML 1,000 ML IV STA (13:28)
[2018-01-22] MEDS ORDERED: DiphenhydrAMINE HCL 50 MG/ML VIAL IV STA (13:28)
[2018-01-22 13:46] LABS: BASO % 1.8 %; BASO ABS # 0.14 K/uL (0-0.2); EOS % 2.6 %; HEMATOCRIT 44.7 % (37-47); HEMOGLOBIN 15.3 g/dL (12.0-16.0); IG# 0.03 K/uL (0.00-0.02); LYMPH % 42.7 %; LYMPH ABS # 3.32 K/uL (1.2-3.4); MEAN CELL VOLUME 83.1 fL (80-100); MEAN CORPUSCULAR HEMOGLOBIN 28.4 pg (25-34); MEAN CORPUSCULAR HGB CONC 34.2 g/dl (32-36); MEAN PLATELET VOLUME 10.1 fL (7.4-10.4); MONO ABS # 0.62 K/uL (0.11-0.59); NEUT % 44.5 %; NEUT ABS # 3.47 K/uL (1.4-6.5); PLATELET COUNT 355 K/uL (130-400); RED CELL DISTRIBUTION WIDTH CV 12.7 % (11.5-14.5); WHITE BLOOD COUNT 7.78 K/uL (4.8-10.8)
[2018-01-22 13:55] VITALS: O2SAT 99
[2018-01-22 14:12] LABS: INFLUENZA B ANTIGEN Neg for Influ B (NEG)
[2018-01-22 14:26] LABS: ALBUMIN 4.3 gm/dl (3.4-5.0); CALCIUM 8.9 mg/dl (8.5-10.1); CREATININE 0.72 mg/dl (0.60-1.20); POTASSIUM 3.5 mmol/L (3.5-5.1); TOTAL PROTEIN 8.5 gm/dl (6.4-8.2)
[2018-01-22] MEDS ORDERED: PSEU60TA26 PO (15:28)
[2018-01-22] MEDS ORDERED: DOXY-300 PO (15:28)
--- NOTE | 2018-01-22 15:32 | EMERGENCY ROOM VISIT NOTE ---
History First contact with patient: 13:14 Chief Complaint: ILLNESS Stated Complaint: SORE THROAT,EAR PAIN,THINKS MRSA IS BACK History of Present Illness The patient is a 32 year old female who presents to the Emergency Room via private with complaints of "sore throat, ear pain, thinks MRSA is back". The patient states that last week she began with what she thought were allergy-like symptoms. She thought she had allergies causing sneezing, cough, runny nose. She states that her thermometer indicated she had a low-grade fever of 100.5F. She states that now this morning it was 104.5F. She notes that she took some Tylenol earlier this morning as well as naproxen but an hour prior to arrival. She also notes now she has a sore throat, her ears hurt left greater than right, and she has a frontal headache as well as sinus pressure near the nose. She also has associated dizziness lightheadedness. She notes she has a history of migraines and this pain is not worse than that. It was not sudden onset. She denies chance of . Review of Systems A complete 10-point Review of Systems was discussed with the patient, with pertinent positives and negatives listed in the History of Present Illness. All remaining Review of Systems questions can be considered negative unless otherwise specified. Past Medical/Surgical History Medical Problems: (1) Arrest of dilitation (2) section (3) History of MRSA infection (4) Migraine (5) Rupture of membranes with clear amniotic fluid Surgical Problems: (1) Previous section Family History FHx: heart disease Hypertension Social History Smoking Status: Never Smoker Drug Use: none Marital Status: in relationship Housing Status: lives with family Occupation Status: employed Current/Historical Medications Scheduled Doxycycline (Monohydrate) (Doxycycline), 100 MG PO BID Fexofenadine Hcl (Lynn Allergy), 180 MG PO DAILY Ranitidine Hcl (Zantac), 150 MG PO DAILY Scheduled PRN Pseudoephedrine Hcl (Pseudoephedrine Hcl), 1 TAB PO Q8 PRN for Nasal Congestion Physical Exam Vital Signs Date Time Temp Pulse Resp B/P (MAP) Pulse Ox O2 Delivery O2 Flow Rate FiO2 01/22/18 15:48 36.8 55 16 115/69 100 01/22/18 15:05 55 16 115/69 100 Room Air 01/22/18 13:55 99 Room Air 01/22/18 13:10 36.8 99 18 172/97 99 Room Air Physical Exam VITAL SIGNS - Vital signs and nursing notes were reviewed. Stable. Afebrile. GENERAL -32-year-old female appearing her stated age who is in no acute distress. She is nontoxic in appearance. She converses without difficulty. Communicates well with provider and answers questions appropriately. SKIN - Without rashes. No meningeal or petechial rash. HEAD - NC/AT. EYES - PERRL with EOMI bilaterally. Sclera anicteric. EARS - No deformities of external structures noted on gross examination bilaterally. External auditory canals without discharge or otorrhea. Tympanic membranes pearly guo without retraction or bulging. No fluid or purulent material visualized behind the TM. Handle of malleus, umbo, cone of light, pars tensa/flaccid all easily visualized. NOSE - Midline and without cyanosis. No epistaxis or purulent drainage noted. MOUTH/OROPHARYNX - Without perioral cyanosis. Buccal mucosa pink and moist and without leukoplakia. Tongue midline with equal elevation of palate bilaterally. No tonsillar hypertrophy, erythema, or exudates noted. Fair dentition noted. NECK - Neck with FROM. Supple to palpation. No lymphadenopathy noted. No nuchal rigidity. LUNGS - Chest wall symmetric without accessory muscle use, intercostals retractions, or central cyanosis. Normal vesicular breath sounds CTA B/L. No wheezes, rales, or rhonchi appreciated. CARDIAC - RRR with S1/S2. No murmur, rubs, or gallops appreciated. ABDOMEN - Abdominal contour normal without pulsations or visible masses. No tenderness, palpable masses, hepatosplenomegaly, or ascites noted. EXTREMITIES - No clubbing or peripheral cyanosis. No pretibial edema present. + 5/5 strength noted in UE/LE bilaterally. NEUROLOGIC - Cranial nerves II through XII grossly intact. Sensory intact to light touch throughout. PSYCH - A&O, and cooperates fully with examiner. Pt is very pleasant and interacts well with examiner. Medical Decision & Procedures Laboratory Results 01/22/18 13:30 Red Blood Count 5.38, Mean Corpuscular Volume 83.1, Mean Corpuscular Hemoglobin 28.4, Mean Corpuscular Hemoglobin Concent 34.2, Mean Platelet Volume 10.1, Neutrophils (%) (Auto) 44.5, Lymphocytes (%) (Auto) 42.7, Monocytes (%) (Auto) 8.0, Eosinophils (%) (Auto) 2.6, Basophils (%) (Auto) 1.8, Neutrophils # (Auto) 3.47, Lymphocytes # (Auto) 3.32, Monocytes # (Auto) 0.62, Eosinophils # (Auto) 0.20, Basophils # (Auto) 0.14 01/22/18 13:30 Test 01/22/18 13:30 01/22/18 15:45 White Blood Count 7.78 K/uL (4.8-10.8) Red Blood Count 5.38 M/uL (4.2-5.4) Hemoglobin 15.3 g/dL (12.0-16.0) Hematocrit 44.7 % (37-47) Mean Corpuscular Volume 83.1 fL (80-100) Mean Corpuscular Hemoglobin 28.4 pg (25-34) Mean Corpuscular Hemoglobin Concent 34.2 g/dl (32-36) Platelet Count 355 K/uL (130-400) Mean Platelet Volume 10.1 fL (7.4-10.4) Neutrophils (%) (Auto) 44.5 % Lymphocytes (%) (Auto) 42.7 % Monocytes (%) (Auto) 8.0 % Eosinophils (%) (Auto) 2.6 % Basophils (%) (Auto) 1.8 % Neutrophils # (Auto) 3.47 K/uL (1.4-6.5) Lymphocytes # (Auto) 3.32 K/uL (1.2-3.4) Monocytes # (Auto) 0.62 K/uL (0.11-0.59) Eosinophils # (Auto) 0.20 K/uL (0-0.5) Basophils # (Auto) 0.14 K/uL (0-0.2) RDW Standard Deviation 38.0 fL (36.4-46.3) RDW Coefficient of Variation 12.7 % (11.5-14.5) Immature Granulocyte % (Auto) 0.4 % Immature Granulocyte # (Auto) 0.03 K/uL (0.00-0.02) Anion Gap 8.0 mmol/L (3-11) Est Creatinine Clear Calc Drug Dose 96.7 ml/min Estimated GFR () 129.3 Estimated GFR (Non- 111.6 BUN/Creatinine Ratio 5.8 (10-20) Calcium Level 8.9 mg/dl (8.5-10.1) Total Bilirubin 0.4 mg/dl (0.2-1) Aspartate Amino Transf (AST/SGOT) 21 U/L (15-37) Alanine Aminotransferase (ALT/SGPT) 55 U/L (12-78) Alkaline Phosphatase 143 U/L (45-117) Total Protein 8.5 gm/dl (6.4-8.2) Albumin 4.3 gm/dl (3.4-5.0) Globulin 4.2 gm/dl (2.5-4.0) Albumin/Globulin Ratio 1.0 (0.9-2) Monoscreen NEG (NEG) Influenza Type A Antigen Neg for Influ A (NEG) Influenza Type B Antigen Neg for Influ B (NEG) Urine Color YELLOW Urine Appearance CLEAR (CLEAR) Urine pH 7.0 (4.5-7.5) Urine Specific [place]cox 1.004 (1.000-1.030) Urine Protein NEG (NEG) Urine Glucose (UA) NEG (NEG) Urine Ketones NEG (NEG) Urine Occult Blood NEG (NEG) Urine Nitrite NEG (NEG) Urine Bilirubin NEG (NEG) Urine Urobilinogen NEG (NEG) Urine Leukocyte Esterase NEG (NEG) Urine Test NEG (NEG) Medications Administered Medications (Trade) Dose Ordered Sig/Miguel Angel Route Start Time Stop Time Status Last Admin Dose Admin Sodium Chloride 1,000 ml @ 0 mls/hr Q0M STAT IV 01/22/18 13:28 01/22/18 13:30 DC 01/22/18 13:45 999 MLS/HR Diphenhydramine HCl (Benadryl Inj) 12.5 mg NOW STAT IV 01/22/18 13:28 01/22/18 13:30 DC 01/22/18 13:50 12.5 MG Prochlorperazine Edisylate (Compazine Inj) 5 mg NOW STAT IV 01/22/18 13:28 01/22/18 13:30 DC 01/22/18 13:51 5 MG Medical Decision Patient was seen and evaluated as above. Review was performed of nursing notes and vital signs. After obtaining a thorough history and physical examination the above work up was performed. She presents to us today with sore throat, ear pain, and headache. She is nontoxic on exam. The neck is not stiff. No signs of meningitis. There is no nuchal rigidity. I did elect to obtain IV access and hydrate the patient she notes she has not had anything to eat or drinking nearly a week. She is not pale, nor appearing malnourished. CBC reveals no leukocytosis or anemia. Chemistry panel reveals alk phos slightly elevated but review of history does not show that this is her highest value. No evidence of kidney or liver failure. Urinalysis completely negative with a negative urine test. Monospot influenza both negative. Rapid strep negative. While here she was given fluids, Benadryl Compazine for her headache. This also helped her nausea. This was chosen as she had had naproxen before coming here so did not give Toradol, noted to get more Tylenol steroid he had some earlier and was not sure how much she took. I suspect she likely experienced either seasonal allergies or a viral sinus infection last week that now could be bacterial. She does have minimal tenderness overlying the frontal maxillary sinuses without evidence of meningitis or encephalitis. There is no evidence of orbital cellulitis or emergent involvement. She was offered imaging as well as a lumbar puncture and through shared decision making it was decided at this time that the risk outweighs the benefit. She will be started upon doxycycline for sinus pathogens as well as Sudafed for congestion. She is to return with worsening. She is to call her family doctor to schedule follow-up. The patient was educated upon management, had questions answered prior to discharge, and was discharged home in good condition. It is important note that at no point during her stated she appear febrile, show signs of meningitis or encephalitis. She converses well, and did not appear to be ill. Case was discussed with the attending physician. In the evaluation and treatment of this patient, the following differential diagnoses were considered: Concussion, Contrecoup Injury, Brain Tumor, Depression, Encephalitis, Hypothyroidism, Meningitis, CVA, TIA, Migraine, Cluster Headache, Intracranial Abnormality, Intracranial Hemorrhage, Subdural Hematoma, Subarachnoid Hemorrhage, Hydrocephalus. Impression Primary Impression: Sinusitis Departure Information Dispostion Home / Self-Care Condition GOOD Prescriptions Pseudoephedrine Hcl (PSEUDOEPHEDRINE HCL) 60 Mg Tab 1 TAB PO Q8 Y for Nasal Congestion for 4 Days, #12 TABS 0 Refills Prov: Lonnie Arroyo PA-C 01/22/18 Doxycycline (Monohydrate) (Doxycycline) 100 Mg Cap 100 MG PO BID for 7 Days, #14 TABS Prov: Lonnie Arroyo PA-C 01/22/18 Referrals No Doctor, Assigned (PCP) Patient Instructions My [facility] Additional Instructions You have been treated in the Emergency Department for a Headache. You have received pain medicine in the emergency department which impairs your ability to operate a vehicle. It is illegal for you to drive after receiving these medicines. You have been prescribed Doxycycline to be taken as prescribed. This is an antibiotic. All antibiotics have the potential to cause diarrhea. Stop this medication and contact a medical provider if you were to develop any significant adverse side effects including: wheezing, shortness of breath, passing out, vomiting, or a diffuse rash. Always take antibiotics as directed and COMPLETE the ENTIRE course regardless of the improvement of your symptoms. Protect yourself with sunscreen while on this antibiotic as it increases your skin's sensitivity to the light and cause bad sunburns. In addition, you should be sure to take this pill after eating. Make sure the pill is completely swallowed as this medication can cause irritation to the lining of the esophagus. Do NOT drink milk or eat anything with large amounts of Calcium in them 1 hour prior to taking this medication as this will decrease the effectiveness of the medication. I have also prescribed you Sudafed. This is 1 tablet every 8 hours. Do not exceed more than 3 tablets per day. This is to help with congestion. For pain control, you can use the following [id number] medicines (if >12 yo): - Regular strength (325mg/tab) Tylenol (acetaminophen) 2 tabs every 4-6 hours as needed. Do not exceed 12 tablets in a 24 hour period. Avoid taking more than 3 grams (3000 mg) of Tylenol per day. This includes any other sources of acetaminophen you may take on a regular basis. - Regular strength (200 mg/tab) Advil (ibuprofen) 1-2 tabs every 4-6 hours as needed. Do not exceed a dose of 3200 mg per day. Please do not take this with naproxen. You should relax in a quiet, dark place for the rest of the day. Avoid any possible triggers including: cigarette smoke, caffeine, nicotine, chocolate, wine, beer, loud noises or music, or bright lights. You should schedule a follow-up appointment in 2-3 days with your Primary Care Provider. Return to the Emergency Department if your current symptoms worsen despite treatment course outlined above, or if you develop any of the following symptoms : intractable pain despite aforementioned treatment course, visual disturbances , loss of vision, unilateral weakness or facial drooping, slurring of speech, loss of coordination, or loss of consciousness.
[2018-01-22 15:48] VITALS: BP 115/69; PULSE 55; TEMP 36.8; O2SAT 100
== END 2018-01-22 15:50 | disposition home or self-care (01) ==
LOC: C.EDB 13:08 → C.EDC 15:50
DX: J32.9 Chronic sinusitis, unspecified (principal); J02.9 Acute pharyngitis, unspecified; R51 Headache; R42 Dizziness and giddiness; Z79.899 Other long term (current) drug therapy

== ENCOUNTER 2025-01-19 18:29 | Observation (INO) ==
--- NOTE | 2025-01-19 18:53 | Emergency Department Note ---
History of Present Illness General Chief complaint: Dental/Oral Stated complaint: JAW/TOOTH PAIN, ABSCESS Time Seen by Provider: 01/19/25 18:43 History of Present Illness Maximum Pain Intensity: 10 This is a 39-year-old female that presents to the emergency department via private vehicle with complaints of "tooth infection/jaw pain". The patient notes that she has been dealing with a tooth infection x 4 months to the right posterior inferior molar region. She notes she has been on multiple antibiotics. She notes that ultimately the tooth was removed on 12/30/2024. She notes she has been on multiple antibiotics since that time and is scheduled to finish the antibiotics today. She notes that she was seen by her PCP x 2 in the recent past and ultimately referred here today for potential IV antibiotics and concern for potential abscess. The patient feels overall unwell. She notes pain to the right posterior inferior molar area and right side of the face. She notes she is currently on doxycycline and metronidazole. Home Medications Medication Instructions Recorded Confirmed Type omeprazole 40 mg capsule,delayed 40 mg PO DAILY #90 caps 07/23/24 01/19/25 Rx release atorvastatin 20 mg tablet (Lipitor) 20 mg PO QPM #90 tabs 08/27/24 01/19/25 Rx cranberry fruit concentrate 250 mg 250 mg PO BID 11/10/24 01/19/25 History chewable tablet (Azo Cranberry) medical marijuana inhalation 11/18/24 01/18/25 History [id number] 1 tab PO DAILY 11/18/24 01/19/25 History fumarate 18 mg-folic acid 400 mcg tablet (One-A-Day Women's Complete) doxycycline hyclate 100 mg capsule 100 mg PO BID 7 days #14 caps 01/13/25 01/19/25 Rx metronidazole 500 mg tablet 500 mg PO Q8H 7 days #21 tabs 01/13/25 01/19/25 Rx meloxicam 15 mg tablet 15 mg PO DAILY #90 tabs 01/18/25 01/19/25 Rx Allergies Allergy/AdvReac Type Severity Reaction Status Date / Time latex Allergy Intermediate HIVES Verified 01/18/25 10:42 Penicillins Allergy Intermediate HIVES Verified 01/18/25 10:42 Past Med/Surg History Problem List (Updated 01/20/25 @ 01:06 by Lonnie Arroyo PA-C) Dental infection (Acute) Arthritis COVID-19 (Acute) Dyslipidemia Acid reflux Migraine (Chronic) Medical History Obesity High cholesterol Arrest of dilation, delivered, current hospitalization (07/17/12) Intrauterine (07/17/12) Cellulitis History of MRSA infection Surgical History History of hysterectomy Previous section Family History Grandmother Lung cancer Grandfather Cancer Other Hypertension Hypotension Denies family history of Ovarian cancer Prostate cancer Myocardial infarction Breast cancer Colorectal cancer Social History Smoking Status: Current every day smoker Tobacco Type: E-cigarettes / Vaping Age Started Using Tobacco: 17; Second Hand Exposure: No; Do You Dip or Chew Tobacco: No; Hx Alcohol Use: No Hx Substance Use: Yes Last Used Substance Other:: patient states she has a medical card Preferred Language: Citizen Of [place] Communication Ability: Effective Visual Impairment: No Limitations Hearing Ability: Normal 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 Beliefs That Will Affect Care: None marital status: Life Partner Current Living Situation: Alone current occupational status: unemployed How many Children do You have: 2 Feels Safe at Home: Yes Safety Concerns: Feels Safe At This Time Childhood Exposure to Second-Hand Smoke: Yes Diet: regular Diet Comment: regular caffeine: Yes during the past year weight has: remained stable Dental Care, Regularly: No Physical Activity Frequency: Daily Seatbelt Use: always Sunscreen Use: Yes Assistive Devices: Glasses Review of Systems A total of 10 systems reviewed and were otherwise negative Physical Exam Vital Signs Vital Signs - 24 hr 01/19/25 18:38 01/19/25 19:07 01/19/25 19:30 Temperature 36.8 C Temperature Source Temporal Artery Scan Pulse Rate 69 65 Pulse Rate [Apical] 72 Respiratory Rate 18 16 24 Respiratory Effort / Characteristics Non-Labored Spontaneous Blood Pressure 146/87 H 103/60 Blood Pressure Mean 106 65 Pulse Oximetry 100 100 99 Oxygen Delivery Method Room Air Room Air Room Air Sepsis Recent Fever Within 48 Hours No Sepsis New/Unexplained Change in Mental Status N/A Sepsis Action Taken by Nursing No Action Required 01/19/25 19:48 01/19/25 21:05 Temperature Temperature Source Pulse Rate 69 72 Pulse Rate [Apical] Respiratory Rate 24 Respiratory Effort / Characteristics Blood Pressure 108/77 Blood Pressure Mean 95 Pulse Oximetry 99 Oxygen Delivery Method Room Air Sepsis Recent Fever Within 48 Hours Sepsis New/Unexplained Change in Mental Status Sepsis Action Taken by Nursing VITAL SIGNS - Vital signs and nursing notes were reviewed. Stable and afebrile. GENERAL -39-year-old female appearing her stated age who is in no acute distress. Communicates well with provider and answers questions appropriately. SKIN - Without rashes. No meningeal or petechial rash. Small amount of edema to the right angle of the mandible region. HEAD - NC/AT. EYES - PERRL with EOMI bilaterally. Sclera anicteric. EARS - No deformities of external structures noted on gross examination bilaterally. No pain elicited with palpation of the tragus bilaterally. External auditory canals without discharge or otorrhea. Tympanic membranes pearly guo without retraction or bulging. No fluid or purulent material visualized behind the TM. Handle of malleus, umbo, cone of light, pars tensa/flaccid all easily visualized. NOSE - Midline and without cyanosis. No epistaxis or purulent drainage noted. Septum midline without deviation or septal hematoma noted. MOUTH/OROPHARYNX - Without perioral cyanosis. Buccal mucosa pink and moist and without leukoplakia. Tongue midline with equal elevation of palate bilaterally. No tonsillar hypertrophy, erythema, or exudates noted. Fair dentition noted. At the operative bed to the right posterior inferior molar region there is a layer of yellowish biofilm. No drooling, stridor, trismus, wheezing or tripoding. Normal phonation. NECK - Neck with FROM. No nuchal rigidity. LUNGS - CTA CARDIAC - RRR NEUROLOGIC - Cranial nerves II through XII grossly intact. PSYCH -alert, oriented and pleasant on exam. Course Administered Medications Acetaminophen (Acetaminophen 500 Mg Tab) 1,000 mg PO Q8H PRN PRN Reason: Pain & Pre PT Stop: 02/18/25 22:23 Last Admin: 01/19/25 23:54 Dose: 1,000 mg Documented By: MLM Chlorhexidine Gluconate (Chlorhexidine Gluconate 0.12% 480 Ml) 15 ml MT BID CARLOS Stop: 02/18/25 22:29 Last Admin: 01/19/25 23:36 Dose: 15 ml Documented By: SHIRIN Sodium Chloride (Nss) 1,000 mls @ 80 mls/hr IV .[id number] CARLOS Stop: 01/22/25 23:21 Last Admin: 01/19/25 23:54 Dose: 80 mls/hr Documented By: SHIRIN Metronidazole (Metronidazole 500 Mg Tab) 500 mg PO Q8 CARLOS; Protocol Stop: 01/21/25 23:29 Last Admin: 01/19/25 23:52 Dose: 500 mg Documented By: SHIRIN Discontinued Medications Ceftriaxone Sodium (Rocephin) 1,000 mg in 50 mls @ 100 mls/hr IV NOW STA Stop: 01/19/25 22:01 Last Infusion: 01/19/25 22:38 Dose: Infused Documented By: Admin: 01/19/25 21:54 Dose: 100 mls/hr Documented By: GRAEME Ioversol (Optiray 320 100ml) 90 ml IV ONCE ONE Stop: 01/19/25 19:58 Last Admin: 01/19/25 19:57 Dose: 90 ml Documented By: ELIUD Nicotine (Nicotine 21 Mg/24 Hr Tdsy) 1 patch TD NOW STA Stop: 01/19/25 22:15 Last Admin: 01/19/25 22:21 Dose: 1 patch Documented By: GRAEME Medical Decision Making Laboratory Data 01/19/25 19:04 01/19/25 19:04 Lab Results 01/19/25 Range/Units 19:04 WBC 8.52 (4.8-10.8) K/ul RBC 4.11 L (4.20-5.40) M/uL Hgb 12.5 (12.0-16.0) g/dl Hct 37.1 (37.0-47.0) % MCV 90.3 (80.0-100.0) fL MCH 30.4 (25.0-34.0) pg MCHC 33.7 (32.0-36.0) g/dL RDW Std Deviation 41.9 (36.4-46.3) fL RDW Coeff of Vanesa 12.7 (11.5-14.5) % Plt Count 429 H (130-400) K/uL MPV 9.5 (9.4-12.4) fL Immature Gran % (Auto) 0.2 % Neut % (Auto) 47.8 % Lymph % (Auto) 34.9 % [place] % (Auto) 6.9 % Eos % (Auto) 8.2 % Baso % (Auto) 2.0 % Neut # (Auto) 4.07 (1.40-6.50) K/uL Lymph # (Auto) 2.97 (1.20-3.40) K/uL [place] # (Auto) 0.59 (0.11-0.59) K/uL Eos # (Auto) 0.70 H (0.00-0.50) K/uL Baso # (Auto) 0.17 (0.00-0.20) K/uL Immature Gran # (Auto) 0.02 (0.01-0.20) K/uL Sodium 138 (136-145) mmol/L Potassium 3.5 (3.5-5.1) mmol/L Chloride 105 (98-107) mmol/L Carbon Dioxide 27 (21-32) mmol/L Anion Gap 6 (3-11) BUN 6 (6-23) mg/dl Creatinine 0.60 (0.6-1.2) mg/dl Est Cr Clr Drug Dosing 88.3 ml/min eGFR 117.75 BUN/Creatinine Ratio 10.0 (10-20) Glucose 94 (70-99(Fasting)) mg/dl Calcium 9.1 (8.6-10.3) mg/dl Total Bilirubin 0.4 (0.2-1.0) mg/dl AST 23 (13-39) U/L ALT 21 (7-52) U/L Alkaline Phosphatase 48 (34-104) U/L Total Protein 7.1 (6.0-8.3) gm/dl Albumin 4.1 (3.4-5.0) gm/dl Globulin 3.0 (2.5-4.0) gm/dl Albumin/Globulin Ratio 1.4 (0.9-2) HCG, Qual Negative (Negative) Imaging Data Radiologist's Impression: Soft Tissue Neck CT 01/19/25 18:52 Exam(s): CT NECK SOFT TISSUE With Contrast IV Amt: 90 ml optiray 320 EXAM: CT Neck With Intravenous Contrast CLINICAL HISTORY: Reason for exam: R posterior/inferior molar region pain. TECHNIQUE: Axial computed tomography images of the neck with intravenous contrast. CTDI is 9.26 mGy and DLP is 262.35 mGy-cm. Automated exposure control was utilized for the study. A dose lowering technique was utilized adhering to the principles of ALARA. CONTRAST: Patient received 90 ml optiray 320 of IV contrast COMPARISON: No relevant prior studies available. FINDINGS: Oropharynx: Unremarkable. No significant tonsillar enlargement. No peritonsillar abscess. Hypopharynx: Unremarkable. Larynx: Unremarkable. Normal epiglottis. Trachea: Unremarkable. Retropharyngeal space: Unremarkable. Submandibular/parotid glands: Unremarkable. Glands are normal in size. Thyroid: Unremarkable. No enlarged or calcified nodules. Bones/joints: No acute fracture. Soft tissues: Right inferior 2nd molar is surgically absent. There is soft tissue swelling and fluid seen in this region which may represent surgical packing. The adjacent osseous structures are intact and there is no abnormal parenchymal enhancement identified on this exam. Vasculature: No acute findings. Lymph nodes: Unremarkable. No lymphadenopathy. Lung apices: Unremarkable as visualized. IMPRESSION: Probable recent extraction of the right inferior 2nd molar. Clinical correlation recommended No evidence of an abscess identified on this exam. Electronically signed by: Rad Mcdowell MD 01/19/25 21:10 PM MDM Narrative Patient was seen and evaluated as above in room C07. Review was performed of triage nursing notes and vital signs. I did review pertinent previous visits and patient history. After obtaining a thorough history and physical examination the above work up was performed. Patient presents to us today for evaluation of ongoing right posterior inferior dental pain status post extraction as well and has been on multiple antibiotics. Options of care were discussed with the patient. IV access was established. Labs were drawn. No leukocytosis or concerning anemia. No emergent metabolic disturbance. hCG negative. CT scan soft tissue neck was obtained. It was felt that the benefit of the imaging outweighed risk. Results as above. There is note of probable recent extraction of the right inferior second molar which does clinically correlate. The patient does have ongoing pain to the area and some edema. Although some of this discomfort and swelling may be postoperative, she has about 20 days post removal. I discussed presentation and findings with on- call oral maxillofacial surgeon, Dr. Pinon. My plan at this time is inpatient management with IV antibiotics, and he will see the patient tomorrow during hospitalization. I discussed the case with the hospitalist service. Please refer to further documentation regarding her stay. I did order ceftriaxone for infection coverage. It is felt that the benefit of this medication outweighs risk. It appears she has had cephalosporins before without issue. In speaking with Dr. Pinon, we will also add Peridex. GCS: 15 In the evaluation and treatment of this patient, the following differential diagnoses were considered: Periapical Abscess, Osteonecrosis of the Jaw, Dental Fracture, Dental Caries, Volodymyr's Angina, Vincent's Angina, Facial Cellulitis, among others. Impression & Plan Dental infection Discharge Plan Visit Data Chief Complaint: Dental/Oral Stated Complaint: JAW/TOOTH PAIN, ABSCESS ED Provider: Katarina Hartman ED Midlevel Provider: Lonnie Arroyo Discharge Problem: Dental infection Patient Disposition: Admitted As Inpatient Condition: Good Discharge Instructions Interventions: ED Discharge Assessment Last Done: 01/19/25 22:52
[2025-01-19 19:23] LABS: Hematocrit (blood only) 37.1 % (37.0-47.0); Hemoglobin 12.5 g/dl (12.0-16.0); Immature Granulocytes # (auto) 0.02 K/uL (0.01-0.20); Immature Granulocytes % (auto) 0.2 %; Mean Corpuscular Hemoglobin 30.4 pg (25.0-34.0); Mean Corpuscular Volume 90.3 fL (80.0-100.0); Platelet Count 429 K/uL (130-400); RDW Standard Deviation 41.9 fL (36.4-46.3); Red Blood Count 4.11 M/uL (4.20-5.40); White Blood Count 8.52 K/ul (4.8-10.8)
[2025-01-19 19:43] LABS: Alanine Aminotransferase 21.0 U/L (7-52); Albumin Globulin Ratio 1.4 (0.9-2); Alkaline Phosphatase 48.0 U/L (34-104); Anion Gap 6.0 (3-11); Bilirubin,Total 0.4 mg/dl (0.2-1.0); Blood Urea Nitrogen 6.0 mg/dl (6-23); Calcium 9.1 mg/dl (8.6-10.3); Carbon Dioxide 27.0 mmol/L (21-32); Chloride 105.0 mmol/L (98-107); Creatinine Clr Calc Pharmacy 88.3 ml/min; Globulin 3.0 gm/dl (2.5-4.0); Glucose 94.0 mg/dl (70-99(Fasting)); Potassium 3.5 mmol/L (3.5-5.1); Sodium 138.0 mmol/L (136-145); Total Protein 7.1 gm/dl (6.0-8.3)
[2025-01-19 19:46] LABS: Pregnancy Test, Serum Negative (Negative)
[2025-01-19] MEDS: OPTIRAY 320 100ml IV ONE (19:57)
--- NOTE | 2025-01-19 21:11 | CT Scan Report ---
Exam(s): CT NECK SOFT TISSUE With Contrast IV Amt: 90 ml optiray 320 EXAM: CT Neck With Intravenous Contrast CLINICAL HISTORY: Reason for exam: R posterior/inferior molar region pain. TECHNIQUE: Axial computed tomography images of the neck with intravenous contrast. CTDI is 9.26 mGy and DLP is 262.35 mGy-cm. Automated exposure control was utilized for the study. A dose lowering technique was utilized adhering to the principles of ALARA. CONTRAST: Patient received 90 ml optiray 320 of IV contrast COMPARISON: No relevant prior studies available. FINDINGS: Oropharynx: Unremarkable. No significant tonsillar enlargement. No peritonsillar abscess. Hypopharynx: Unremarkable. Larynx: Unremarkable. Normal epiglottis. Trachea: Unremarkable. Retropharyngeal space: Unremarkable. Submandibular/parotid glands: Unremarkable. Glands are normal in size. Thyroid: Unremarkable. No enlarged or calcified nodules. Bones/joints: No acute fracture. Soft tissues: Right inferior 2nd molar is surgically absent. There is soft tissue swelling and fluid seen in this region which may represent surgical packing. The adjacent osseous structures are intact and there is no abnormal parenchymal enhancement identified on this exam. Vasculature: No acute findings. Lymph nodes: Unremarkable. No lymphadenopathy. Lung apices: Unremarkable as visualized. IMPRESSION: Probable recent extraction of the right inferior 2nd molar. Clinical correlation recommended No evidence of an abscess identified on this exam. Electronically signed by: Rad Mcdowell MD 01/19/25 21:10 PM
--- NOTE | 2025-01-19 21:45 | History & Physical Report ---
Date of Service January 19, 2025 Assessment & Plan (1) Dental infection: Plan 39-year-old female PMHx GERD, migraines, and dyslipidemia presenting for R jaw pain and "dental infection" which has been ongoing x 1 month per patient. ED evaluation reveals CBC w/o leukocytosis, stable H&H, platelets 429k; CMP WNL; soft tissue neck CT probable recent obstruction of R inferior second molar, no evidence of an abscess.; Provided with ceftriaxone 1 g IV in ED. #Dental infection Ongoing x 4 months total per patient, worsening over the past 1 month. Was on doxycycline + metronidazole with final course of treatment being the day of arrival. No difficulties breathing or swallowing at present. No F/C. R sided jaw/neck/tooth pain, foul taste in mouth. Sent from outpatient for concerns of worsening infection. - CBC without leukocytosis; CMP unremarkable - CBC am - Soft tissue neck CT probable recent obstruction of R inferior 2nd molar, no evidence of an abscess - NPO midnight, clear liquids or as patient tolerates until then - IVF NS @ 80 mL/hr - Acetaminophen, morphine prn pain - Zofran prn N/V - Peridex BID - Ceftriaxone 2g IV + Metronidazole 500 mg daily (continued) - Dr. Pinon consulted - appreciate input + recs #Nicotine dependance- Vapes daily ~ every hour, 5%; nicotine patch ordered - continue #Dyslipidemia- Atorvastatin - continue #GERD- Omeprazole - continue Dispo: Obs, med/sx VTE Prophylaxis: SCDs This document was dictated utilizing [employer]or[employer]. Please excuse any grammatical errors that may be secondary to use of this software. Admission and Anticipated Discharge Date Admission Date: 01/19/2025 History of Present Illness Chief Complaint: Jaw pain (R) Primary Care Provider: Mary Urbina DO 39-year-old female PMHx GERD, migraines, and dyslipidemia presenting for R jaw pain and "dental infection" which has been ongoing x 1 month per patient. Was referred to ED for IV abx. States that she has actually been dealing with this same area in her mouth for 4 months, stating initially a cap fell off her tooth and she waited to have it seen. Once it started to cause her pain, she went to the dentist and from there continued to have problems with the area. She is having 7/10 pain on the R side, sharp and also aching in nature. Occasionally goes down her throat and feels "full", normally not up to her ear. Occasionally has a foul taste in her mouth. She does not have difficulties breathing or swallowing presently. When she is off antibiotics, she feels that her symptoms are worsened. She has been taking metronidazole and doxycycline as prescribed, with the day of admission being her final day of the treatment course. She has not had reported fevers, feels cold instead. No additional symptoms. Specifically denies chest pain, SOB, palpitations, abdominal pain, N/V/D/C, numbness/tingling, fever/chills, URI symptoms, LUTS, weakness, or syncope. ED evaluation reveals CBC w/o leukocytosis, stable H&H, platelets 429k; CMP WNL; soft tissue neck CT probable recent obstruction of R inferior second molar, no evidence of an abscess.; Provided with ceftriaxone 1 g IV in ED. Please see Dr. Smith's attestation for adjustments/additions to treatment plan. Allergies Allergy/AdvReac Type Severity Reaction Status Date / Time latex Allergy Intermediate HIVES Verified 01/18/25 10:42 Penicillins Allergy Intermediate HIVES Verified 01/18/25 10:42 Home Medications Medication Instructions Recorded Confirmed Type omeprazole 40 mg capsule,delayed 40 mg PO DAILY #90 caps 07/23/24 01/19/25 Rx release atorvastatin 20 mg tablet (Lipitor) 20 mg PO QPM #90 tabs 08/27/24 01/19/25 Rx cranberry fruit concentrate 250 mg 250 mg PO BID 11/10/24 01/19/25 History chewable tablet (Azo Cranberry) medical marijuana inhalation 11/18/24 01/18/25 History vpffkksiilfr-dlnkbdug-bbjg 1 tab PO DAILY 11/18/24 01/19/25 History fumarate 18 mg-folic acid 400 mcg tablet (One-A-Day Women's Complete) doxycycline hyclate 100 mg capsule 100 mg PO BID 7 days #14 caps 01/13/25 01/19/25 Rx metronidazole 500 mg tablet 500 mg PO Q8H 7 days #21 tabs 01/13/25 01/19/25 Rx meloxicam 15 mg tablet 15 mg PO DAILY #90 tabs 01/18/25 01/19/25 Rx Past Med/Surg History Problem List (Updated 01/20/25 @ 01:06 by Lonnie Arroyo PA-C) Dental infection (Acute) Arthritis COVID-19 (Acute) Dyslipidemia Acid reflux Migraine (Chronic) Medical History Obesity High cholesterol Arrest of dilation, delivered, current hospitalization (07/17/12) Intrauterine (07/17/12) Cellulitis History of MRSA infection Surgical History History of hysterectomy Previous section Family History Grandmother Lung cancer Grandfather Cancer Other Hypertension Hypotension Denies family history of Ovarian cancer Prostate cancer Myocardial infarction Breast cancer Colorectal cancer Social History Smoking Status: Current every day smoker Tobacco Type: E-cigarettes / Vaping Age Started Using Tobacco: 17; Second Hand Exposure: No; Do You Dip or Chew Tobacco: No; Hx Alcohol Use: No Hx Substance Use: Yes Last Used Substance Other:: patient states she has a medical card Preferred Language: Stateless Communication Ability: Effective Visual Impairment: No Limitations Hearing Ability: Normal 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 Beliefs That Will Affect Care: None marital status: Life Partner Current Living Situation: Alone current occupational status: unemployed How many Children do You have: 2 Feels Safe at Home: Yes Safety Concerns: Feels Safe At This Time Childhood Exposure to Second-Hand Smoke: Yes Diet: regular Diet Comment: regular caffeine: Yes during the past year weight has: remained stable Dental Care, Regularly: No Physical Activity Frequency: Daily Seatbelt Use: always Sunscreen Use: Yes Assistive Devices: Glasses Review of Systems Review of Systems: All systems reviewed & are unremarkable except as noted in Subjective Physical Exam Physical Exam: General: No acute distress Skin: Warm and dry Head: Normocephalic, atraumatic Eyes: PERRL, conjunctivae clear, sclera non-icteric; wearing glasses ENT: External ear and ear canal without swelling; nose atraumatic; fair dentition, posterior R tooth grayish in color, tongue normal appearance, pharynx normal Neck: Supple, LAD noted R > L Cardio: RRR, no M/G/R, S1 and S2 normal Resp: No respiratory distress, Lungs CTA in all lobes bilaterally, no wheezes, rales, or rhonchi Abdomen: Soft, symmetric, nontender; No masses or hepatosplenomegaly; Bowel sounds normoactive MSK: No deformities; pulses palpable and equal; no edema. Neuro: Awake, alert; Sensation intact bilaterally; CN grossly intact Psych: Appropriate mood and affect; good judgement and insight. Results & Data Results & Data Vital Signs (Past 12 Hours) Vital Signs Temp Pulse Pulse Resp BP Pulse Ox O2 Del Method 01/19/25 21:05 72 24 108/77 99 Room Air 01/19/25 19:48 69 01/19/25 19:30 65 24 103/60 99 Room Air 01/19/25 19:07 72 16 100 Room Air 01/19/25 18:38 36.8 C 69 18 146/87 H 100 Room Air Laboratory Results 01/19/25 19:04 WBC 8.52 RBC 4.11 L Hgb 12.5 Hct 37.1 MCV 90.3 MCH 30.4 MCHC 33.7 RDW Std Deviation 41.9 RDW Coeff of Vanesa 12.7 Plt Count 429 H MPV 9.5 Immature Gran % (Auto) 0.2 Neut % (Auto) 47.8 Lymph % (Auto) 34.9 Kimble % (Auto) 6.9 Eos % (Auto) 8.2 Baso % (Auto) 2.0 Neut # (Auto) 4.07 Lymph # (Auto) 2.97 Kimble # (Auto) 0.59 Eos # (Auto) 0.70 H Baso # (Auto) 0.17 Immature Gran # (Auto) 0.02 Sodium 138 Potassium 3.5 Chloride 105 Carbon Dioxide 27 Anion Gap 6 BUN 6 Creatinine 0.60 Est Cr Clr Drug Dosing 88.3 eGFR 117.75 BUN/Creatinine Ratio 10.0 Glucose 94 Calcium 9.1 Total Bilirubin 0.4 AST 23 ALT 21 Alkaline Phosphatase 48 Total Protein 7.1 Albumin 4.1 Globulin 3.0 Albumin/Globulin Ratio 1.4 HCG, Qual Negative Diagnostic Findings Soft Tissue Neck CT 01/19/25 18:52 Exam(s): CT NECK SOFT TISSUE With Contrast IV Amt: 90 ml optiray 320 EXAM: CT Neck With Intravenous Contrast CLINICAL HISTORY: Reason for exam: R posterior/inferior molar region pain. TECHNIQUE: Axial computed tomography images of the neck with intravenous contrast. CTDI is 9.26 mGy and DLP is 262.35 mGy-cm. Automated exposure control was utilized for the study. A dose lowering technique was utilized adhering to the principles of ALARA. CONTRAST: Patient received 90 ml optiray 320 of IV contrast COMPARISON: No relevant prior studies available. FINDINGS: Oropharynx: Unremarkable. No significant tonsillar enlargement. No peritonsillar abscess. Hypopharynx: Unremarkable. Larynx: Unremarkable. Normal epiglottis. Trachea: Unremarkable. Retropharyngeal space: Unremarkable. Submandibular/parotid glands: Unremarkable. Glands are normal in size. Thyroid: Unremarkable. No enlarged or calcified nodules. Bones/joints: No acute fracture. Soft tissues: Right inferior 2nd molar is surgically absent. There is soft tissue swelling and fluid seen in this region which may represent surgical packing. The adjacent osseous structures are intact and there is no abnormal parenchymal enhancement identified on this exam. Vasculature: No acute findings. Lymph nodes: Unremarkable. No lymphadenopathy. Lung apices: Unremarkable as visualized. IMPRESSION: Probable recent extraction of the right inferior 2nd molar. Clinical correlation recommended No evidence of an abscess identified on this exam. Electronically signed by: Rad Mcdowell MD 01/19/25 21:10 PM Medications Administered Ceftriaxone 1g IV Code Status & VTE Plan Code Status Full Supervising Physician Co-Signing Physician Notes Patient seen and examined, chart reviewed, case discussed with NICOLE Goode and I agree with the assessment and plan as above PG Care Time/CCT Total # of Minutes Spent Total Time Spent with Patient: Total time spent is greater than 50% in coordination of care (as documented) at patient's floor/unit and/or counseling patient: Coding Level of Care Code 50202 INT INP/OBS CARE 3/75MIN Diagnoses Dental infection K04.7
[2025-01-19] MEDS: cefTRIAXone SODIUM 1,000 MG/50 ML BAG IV STA (21:54)
[2025-01-19] MEDS: NICOTINE 21 MG/24 HR TDSY TD STA (22:21)
[2025-01-19] MEDS ORDERED: MoRPHine SULFATE 4 MG/ML 1 ML CARP\\VIAL IV PRN (22:24)
[2025-01-19] MEDS ORDERED: MoRPHine SULFATE 2 MG/ML CARP IV PRN (22:24)
[2025-01-19] MEDS ORDERED: MELATONIN 3 MG TAB PO PRN (23:22)
[2025-01-19] MEDS: CHLORHEXIDINE GLUCONATE 0.12% 480 ML MT SCH (23:36)
[2025-01-19] MEDS: metroNIDAZOLE 500 MG TAB PO SCH (23:52)
[2025-01-19] MEDS: ACETAMINOPHEN 500 MG TAB PO PRN (23:54)
[2025-01-19] MEDS: SODIUM CHLORIDE 0.9% 1,000 ML IV SCH (23:54)
[2025-01-20 00:21] VITALS: RESP 16; O2SAT 100
[2025-01-20 06:00] LABS: Hematocrit (blood only) 33.9 % (37.0-47.0); Hemoglobin 11.0 g/dl (12.0-16.0); Mean Corpuscular Hemoglobin 29.3 pg (25.0-34.0); Mean Corpuscular Volume 90.4 fL (80.0-100.0); Platelet Count 349 K/uL (130-400); RDW Standard Deviation 42.5 fL (36.4-46.3); Red Blood Count 3.75 M/uL (4.20-5.40); White Blood Count 9.83 K/ul (4.8-10.8)
[2025-01-20 06:21] LABS: Anion Gap 4.0 (3-11); Blood Urea Nitrogen 7.0 mg/dl (6-23); Calcium 8.4 mg/dl (8.6-10.3); Carbon Dioxide 28.0 mmol/L (21-32); Chloride 106.0 mmol/L (98-107); Creatinine Clr Calc Pharmacy 106.7 ml/min; Glucose 96.0 mg/dl (70-99(Fasting)); Potassium 4.1 mmol/L (3.5-5.1); Sodium 138.0 mmol/L (136-145)
[2025-01-20 07:13] VITALS: BP 113/72; PULSE 64; TEMP 98.2
[2025-01-20] MEDS: NICOTINE 21 MG/24 HR TDSY TD SCH (07:21)
[2025-01-20] MEDS: REMOVE NICODERM PATCH SCH (07:22)
[2025-01-20] MEDS: ONDANSETRON INJ 2 MG/ML 2 ML VIAL IV PRN (08:25)
[2025-01-20] MEDS ORDERED: REMOVE NICODERM PATCH SCH (08:59)
--- NOTE | 2025-01-20 11:24 | Oral/Maxillofacial Consult ---
Date of Consultation January 20, 2025 Assessment & Plan (1) Dental infection: (2) Status post tooth extraction: (3) Chronic dental pain: History of Present Illness Attending Physician: Leena Carlson MD History of Present Illness Had tooth # 31 removed 1 month ago Continued pain and on off swelling Came to ER due to acute pain and discharge despite different oral antibiotics. CT shows normal healing socket Clinical presentation looks good-health tissues no evidence of infection or dry socket Francisca tells me she is feeling better--I feel she can be discharged with an oral antibiotic and Peridex mouth rinse. Suggested she see her dentist for follow up or call my office as needed if her symptoms continue. Today --it looks like she is doing well w/o any infection and much less pain . In I see no signs of infection, drainage, abnormal healing, dry socket I reassured Francisca that in my opinion the surgical site looks great! Suggested Peridex and oral antibiotics See dentist for further follow up if needed or call my office Expect that the site will continue to heal. General Chief complaint: Dental/Oral Stated complaint: JAW/TOOTH PAIN, ABSCESS History of Present Illness Maximum Pain Intensity: 10 This is a 39-year-old female that presents to the emergency department via private vehicle with complaints of "tooth infection/jaw pain". The patient notes that she has been dealing with a tooth infection x 4 months to the right posterior inferior molar region. She notes she has been on multiple antibiotics. She notes that ultimately the tooth was removed on 12/30/2024. She notes she has been on multiple antibiotics since that time and is scheduled to finish the antibiotics today. She notes that she was seen by her PCP x 2 in the recent past and ultimately referred here today for potential IV antibiotics and concern for potential abscess. The patient feels overall unwell. She notes pain to the right posterior inferior molar area and right side of the face. She notes she is currently on doxycycline and metronidazole. Home Medications Allergies Allergy/AdvReac Type Severity Reaction Status Date / Time latex Allergy Intermediate HIVES Verified 01/18/25 10:42 Penicillins Allergy Intermediate HIVES Verified 01/18/25 10:42 Home Medications Medication Instructions Recorded Confirmed Type omeprazole 40 mg capsule,delayed 40 mg PO DAILY #90 caps 07/23/24 01/19/25 Rx release atorvastatin 20 mg tablet (Lipitor) 20 mg PO QPM #90 tabs 08/27/24 01/19/25 Rx cranberry fruit concentrate 250 mg 250 mg PO BID 11/10/24 01/19/25 History chewable tablet (Azo Cranberry) medical marijuana inhalation 11/18/24 01/18/25 History uvwasqzvmhnr-uhdrloga-pycs 1 tab PO DAILY 11/18/24 01/19/25 History fumarate 18 mg-folic acid 400 mcg tablet (One-A-Day Women's Complete) meloxicam 15 mg tablet 15 mg PO DAILY #90 tabs 01/18/25 01/19/25 Rx chlorhexidine gluconate 0.12 % 15 ml MT BID #600 mL 01/20/25 Rx mouthwash clindamycin HCl 300 mg capsule 300 mg PO TID 7 days #21 caps 01/20/25 Rx lactobacillus combo no.11 15 1 cap PO DAILY #7 caps 01/20/25 Rx billion cell sprinkle capsule (Probiotic) ondansetron 4 mg disintegrating 4 mg PO Q8H PRN nausea and 01/20/25 Rx tablet vomiting #30 tabs Patient History Medical History Obesity High cholesterol Arrest of dilation, delivered, current hospitalization (07/17/12) Intrauterine (07/17/12) Cellulitis History of MRSA infection Surgical History History of hysterectomy Previous section Family History Grandmother Lung cancer Grandfather Cancer Other Hypertension Hypotension Denies family history of Ovarian cancer Prostate cancer Myocardial infarction Breast cancer Colorectal cancer Social History Smoking Status: Current every day smoker Tobacco Type: E-cigarettes / Vaping Age Started Using Tobacco: 17; Second Hand Exposure: No; Do You Dip or Chew Tobacco: No; Hx Alcohol Use: No Hx Substance Use: Yes Last Used Substance Other:: patient states she has a medical card Preferred Language: Finnish Communication Ability: Effective Visual Impairment: No Limitations Hearing Ability: Normal Social Worker Aide Required: No Beliefs That Will Affect Care: None marital status: Life Partner Current Living Situation: Alone current occupational status: unemployed How many Children do You have: 2 Feels Safe at Home: Yes Childhood Exposure to Second-Hand Smoke: Yes Diet: regular Diet Comment: regular caffeine: Yes during the past year weight has: remained stable Dental Care, Regularly: No Physical Activity Frequency: Daily Seatbelt Use: always Sunscreen Use: Yes Assistive Devices: Glasses Results & Data Vital Signs (Past 12 Hours) Vital Signs Temp Pulse Resp BP Pulse Ox O2 Del Method 01/20/25 07:13 36.8 C 64 16 113/72 100 Room Air 01/20/25 00:18 36.6 C 61 16 117/81 100 Room Air 01/19/25 23:30 36.6 C 61 16 117/81 100 Room Air PG Care Time/CCT Total # of Minutes Spent Total Time Spent with Patient: Total time spent is greater than 50% in coordination of care (as documented) at patient's floor/unit and/or counseling patient: Coding Level of Care Code 31790 OFFICE CONSULT LVL Diagnoses Dental infection K04.7 Status post tooth extraction K08.409 Chronic dental pain K08.9; G89.29
--- NOTE | 2025-01-20 11:24 | Discharge Summary ---
Discharge Summary Date of Service January 20, 2025 Principal Dx & Hospital Course #1 = Principal Diagnosis (1) Dental infection: Plan 39-year-old female PMHx GERD, migraines, and dyslipidemia presenting for R jaw pain and "dental infection" which has been ongoing x 1 month per patient. ED evaluation reveals CBC w/o leukocytosis, stable H&H, platelets 429k; CMP WNL; soft tissue neck CT probable recent obstruction of R inferior second molar, no evidence of an abscess.; Provided with ceftriaxone 1 g IV in ED. #Dental infection Ongoing x 4 months total per patient, worsening over the past 1 month. Was on doxycycline + metronidazole with final course of treatment being the day of arrival. No difficulties breathing or swallowing at present. No F/C. R sided jaw/neck/tooth pain, foul taste in mouth. Sent from outpatient for concerns of worsening infection. Soft tissue neck CT: probable recent extraction of right inferior 2nd molar. no evidence of abscess CBC/BMP w/ stable labs s/p IVF Oral surgoen eval --> no surgical intervention warranted. dc on PO abx. Needs to follow up in Dr Pinon's office vs her dentist on discharge. s/p IV Rocephin + Flagyl while inpatient --> transition to PO Clindamycin TID x 7 days on discharge. Peridex BID #Nicotine dependance- Vapes daily ~ every hour, 5%; nicotine patch used while inpatient. #Dyslipidemia- Atorvastatin - continue #GERD- Omeprazole - continue Discussed w/ Dr. Pinon 01/20. Discharged home 01/20 Admission HPI Per Admitting Provider 39-year-old female PMHx GERD, migraines, and dyslipidemia presenting for R jaw pain and "dental infection" which has been ongoing x 1 month per patient. Was referred to ED for IV abx. States that she has actually been dealing with this same area in her mouth for 4 months, stating initially a cap fell off her tooth and she waited to have it seen. Once it started to cause her pain, she went to the dentist and from there continued to have problems with the area. She is having 7/10 pain on the R side, sharp and also aching in nature. Occasionally goes down her throat and feels "full", normally not up to her ear. Occasionally has a foul taste in her mouth. She does not have difficulties breathing or swallowing presently. When she is off antibiotics, she feels that her symptoms are worsened. She has been taking metronidazole and doxycycline as prescribed, with the day of admission being her final day of the treatment course. She has not had reported fevers, feels cold instead. No additional symptoms. Specifically denies chest pain, SOB, palpitations, abdominal pain, N/V/D/C, numbness/tingling, fever/chills, URI symptoms, LUTS, weakness, or syncope. ED evaluation reveals CBC w/o leukocytosis, stable H&H, platelets 429k; CMP WNL; soft tissue neck CT probable recent obstruction of R inferior second molar, no evidence of an abscess.; Provided with ceftriaxone 1 g IV in ED. Please see Dr. Smith's attestation for adjustments/additions to treatment plan. Discharge Exam Constitutional WD/WN, vitals as above Eyes PERRL, conjunctivae normal, anicteric sclerae Respiratory normal respiratory effort Cardiovascular no LE edema Neurologic PERRL, EOMI, accommodation nl, no face palsy, no dysarthria Psychiatric A+Ox3, euthymic affect Discharge Plan Discharge Items Patient Disposition: Home - Self-Care Reason For Visit: DENTAL INFECTION Discharge Diagnosis: Dental infection Condition on Discharge: Good Activity: Resume your previous activity Non-emergency contact: Primary Care Provider Call non-emergency contact if: you have any medication questions and your symptoms worsen Follow-up/Referrals: Mary Urbina DO [Primary Care Provider] - 02/01/25 9:20 am Moises Pinon DMD [Physician] - Diet: Regular Addtl Attending Provider Instructions: Ms. Levine, Santos were recently hospitalized for an ongoing dental infection. You were evaluated by our oral surgeon who has deemed it safe for you to return home on antibiotics. You do not require surgery for your dental infection. Imaging confirmed there was no abscess. Please see recommendations below regarding your discharge. Please take Clindamycin three times daily for the next 7 days. Your first dose at home will be this evening, 01/20. You may take your antibiotic with food to avoid GI upset. Please take a daily probiotic while on the antibiotic to help promote good bacteria in your gut. This has also been sent to your pharmacy. Please use Tylenol as needed for pain (1000mg every 8 hours). Please follow up with an oral surgeon/dentist upon discharge for continued care. Please follow up with your PCP within 1-2 weeks of discharge. Best of luck! Libby Schumacher PA-C Pending Studies at Discharge: No Stand-Alone Forms: My [facility], Work/School Release, Smoking Cessation Medications and DC Order Prescriptions: New chlorhexidine gluconate 0.12 % Mouthwash 15 ml MT BID Qty: 600 0RF clindamycin HCl 300 mg capsule 300 mg PO TID 7 Days Qty: 21 0RF Probiotic 15 billion cell capsule, sprinkle 1 cap PO DAILY Qty: 7 0RF Rx Instructions: do not crush/chew/cut; swallow whole OR may open and sprinkle in cold drink/food ondansetron 4 mg tablet,disintegrating 4 mg PO Q8H PRN (Reason: nausea and vomiting) Qty: 30 0RF Continued omeprazole 40 mg capsule,delayed release(DR/EC) 40 mg PO DAILY Qty: 90 1RF atorvastatin [Lipitor] 20 mg tablet 20 mg PO QPM Qty: 90 1RF Azo Cranberry 250 mg tablet,chewable 250 mg PO BID One-A-Day Women's Complete 18 mg iron- 400 mcg tablet 1 tab PO DAILY medical marijuana inhalation meloxicam 15 mg tablet 15 mg PO DAILY Qty: 90 3RF Discontinued metronidazole 500 mg tablet 500 mg PO Q8H 7 Days Qty: 21 0RF doxycycline hyclate 100 mg capsule 100 mg PO BID 7 Days Qty: 14 0RF Discharge Orders: Discharge Order (Routine); Ordered 01/20/25 Ordered By: Libby Schumacher Admission Data Admit Date/Time: 01/19/25 21:49 Attending Provider: Leena Carlson Admit Provider: Soila Smith Primary Care Provider: Mary Urbina. Other Providers: Soila Smith; Moises Pinon Other Interventions: Discharge Summary Assessment (RN) Last Done: 01/20/25 11:28 Hospital Stay Data Consultations 01/19/25 21:32 ED Decision to Admit Stat 01/19/25 23:22 Consult Oromaxillofacial Surgery Routine Diagnostic Imagining Performed 01/19/25 18:52 CT soft tissue neck w con Stat Pending Results Patient Have Any Pending Studies at Discharge: No Discharge Instructions Given to Patient (Per Discharging Provider) Ms. Levine, You were recently hospitalized for an ongoing dental infection. You were evaluated by our oral surgeon who has deemed it safe for you to return home on antibiotics. You do not require surgery for your dental infection. Imaging confirmed there was no abscess. Please see recommendations below regarding your discharge. Please take Clindamycin three times daily for the next 7 days. Your first dose at home will be this evening, 01/20. You may take your antibiotic with food to avoid GI upset. Please take a daily probiotic while on the antibiotic to help promote good bacteria in your gut. This has also been sent to your pharmacy. Please use Tylenol as needed for pain (1000mg every 8 hours). Please follow up with an oral surgeon/dentist upon discharge for continued care. Please follow up with your PCP within 1-2 weeks of discharge. Best of luck! Libby Schumacher PA-C Total Time Total Time Spent Total Time Spent (In Minutes): 50 Total Time Includes: Examination of the Patient, Discharge Planning, Medication Reconciliation and Communication With Other Providers Coding Level of Care Code 91426 INP/OBS DISCH >30 MIN Diagnoses Dental infection K04.7
[2025-01-20] MEDS ORDERED: ATORVASTATIN 20 MG TAB PO SCH (21:00)
[2025-01-20] MEDS ORDERED: cefTRIAXone SODIUM 2,000 MG/50 ML BAG IV SCH (22:00)
== END 2025-01-20 12:55 | disposition home or self-care (01) ==
LOC: 3E 18:29 → ED 18:29 → SUATTDRO 21:49 → 3E 22:52